=== PATIENT | female | born 1945 | race Caucasian/White ===

== ENCOUNTER 2025-01-08 17:39 | Inpatient (IN) | payer MEDICARE, OTHER, SELFPAY ==
[2025-01-08] VITALS (7 sets, daily range): BP systolic 136–175; BP diastolic 57–79
--- NOTE | 2025-01-08 18:32 | PTCARENOTE ---
Received pt from [facility]. Oriented x3, amb w/ assist. VSS, monitor showing NSR. c/o /10 chest discomfort with coughing and deep breathing. Lungs CTA, abdomen benign, no n/v. Voided in BR with assistance. Hep/Amio drips infusing without difficulty.
Hospitalist notified of arrival, awaiting further orders. Pt/family oriented to room, call arroyo in reach.
--- NOTE | 2025-01-08 19:32 | HPS.HSE ---
Addendum entered and electronically signed by Joanne Noriega MD 01/08/25 20:22:
Correction-patient restarted on amiodarone drip at [facility] due to runs of SVT versus NSVT.
Original Note:
Family Physician
-
Family Physician: Joanne Noriega MD
Chief Complaint
-
chest pain
History of Present Illness
79-year-old female past medical history of hypertension presenting as a transfer from [facility]. She originally went to [facility] 2 days ago for severe pleuritic chest pain radiating up to her neck, shortness of breath and dizziness. She
was discovered to be in atrial fibrillation and given Cardizem en route to the hospital which dropped her blood pressure. She was given IV fluids and shocked without improvement in heart rate. Cardizem drip was stopped and she was started on
amiodarone drip.
She had CT PE which showed basilar consolidations initially thought to be pneumonia and she was treated with antibiotics for some period time which were later discontinued. She also had a mild left pleural effusion. She had troponin elevation
which was thought to be due to nonischemic myocardial injury. She had hypokalemia that was corrected.
She later had echocardiogram which showed severe mitral stenosis. Cardiology thought that severe mitral stenosis was contributing to atrial fibrillation and patient was recommended to be transferred to either [facility] or [facility] for
potential surgical management of mitral stenosis.
She was going to be converted to p.o. amiodarone however she continued to have intermittent episodes of atrial fibrillation so she was placed back on amiodarone drip before transfer to [facility].
Patient had a fall few months ago due to syncope.
No family history of heart disease.
She denies smoking or alcohol use.
At this time patient states that she continues to have chest pain when she takes a deep breath but the pain is substantially improved. She denies any swelling in the legs or weight gain. She has slight cough. Denies fevers or chills.
Medical History
Past Medical History
Past Medical History: Reports Other (hypertension)
Past Surgical History: Reports Orthopedic
Social History
Tobacco: Non-smoker
Alcohol: None
Drug: None
Family History
Family History: Not pertinent
Allergies / Home Medications
Allergies reflects when Allergies were last updated in [employer]
Home Medications with original date entered in [employer]
Allergy/Medication List:
Allergies
Allergy/AdvReac Type Severity Reaction Status Date / Time
sulfamethoxazole (From Allergy Intermediate Nausea / Verified 01/08/25 17:55
Bactrim) Vomiting
trimethoprim (From Bactrim) Allergy Intermediate Nausea / Verified 01/08/25 17:55
Vomiting
Home Medications
hydrochlorothiazide 12.5 mg capsule 12.5 mg PO DAILY 01/08/25
losartan 25 mg tablet 25 mg PO DAILY 01/08/25
Review of Systems
-
History Source: Patient
A 12 point ROS was completed and negative except as noted: Yes
Constitutional: Reports No Symptoms
EENT: Reports No Symptoms
Respiratory: Reports See HPI
Cardiac: Reports See HPI
Abdomen/GI: Reports No Symptoms
: Reports No Symptoms
Musculoskeletal: Reports No Symptoms
Skin: Reports No Symptoms
Neurological: Reports No Symptoms
Endocrine: Reports No Symptoms
Hematologic/Lymphatic: Reports No Symptoms
Psych: Reports No Symptoms
Physical Exam
Vital Signs
Vital Signs
Temp Pulse Resp BP Pulse Ox
98.8 F 71 16 172/67 92
01/08/25 19:22 01/08/25 19:22 01/08/25 19:22 01/08/25 17:42 01/08/25 19:22
Physical Exam
General: Well Developed, Well Nourished and No Apparent Distress
HEENT: NormoCephalic, Moist mucous membranes and Atraumatic
Respiratory: Clear
Cardiac: S1/S2 and Regular Rhythm; No Murmur or Rub
GI: Soft, Non Tender, Non Distended and Normal Bowel Sounds; No Organomegaly
Rectal: Deferred by Provider
Musculoskeletal: No Clubbing, No Cyanosis and No Edema
Skin: No Rash
Neuro: Nonfocal/grossly intact
Data Reviewed
-
Lab Data: Labs Reviewed by me
Old Records: Reviewed
Impression/Plan
-
IMPRESSION:
PLAN:
# Atrial fibrillation with RVR secondary to severe mitral stenosis
-Did not respond to Cardizem drip or cardioversion
- Continue amiodarone drip for now which should be completed by morning and start amiodarone 200 twice daily for 15 days then increase to 200 mg daily
- Continue heparin drip
- Cardiology consulted
# Chest pain secondary to atrial fibrillation
-High-sensitivity troponin 28, then 66, then 394
-Chest pain improved once A-fib was treated
- Echo did not show any wall motion abnormalities
- Outpatient ischemic workup was recommended
# Severe mitral stenosis
- Surgical evaluation was recommended and therefore transfer to [facility]
# HFpEF secondary to valvular disease
-Normal ejection fraction
-Cardiac BNP 1100
- She received 20 IV Lasix once
- No further diuresis was recommended
- Does not appear volume overloaded on examination
# Hypokalemia
- Corrected
Essential hypertension
- Losartan 25 mg, hydrochlorothiazide, 12.5 mg were resumed
DNR/DNI
DVT prophylaxis�heparin drip
Cardiac diet
[2025-01-08 19:57] LABS: Hematocrit 38.9 % (37.0-47.0); Hemoglobin 13.3 g/dL (12.0-16.0); Mean Corp Hgb Conc. 34.2 g/dL (33.0-37.0); Mean Corpuscular Volume 85.9 fL (81.0-99.0); Platelet Count 160 10^3/uL (130-400); Red Cell Dist. Width 13.9 % (11.5-14.5)
[2025-01-08] MEDS: HEPARIN 25000 UNITS/250 ML IV (19:58)
[2025-01-08] MEDS: CORDARONE 518 MG IV (20:01)
[2025-01-08 20:11] LABS: APTT 76.8 Sec (23.4-35.0)
[2025-01-08] MEDS: PACERONE 200 MG PO (21:23)
--- NOTE | 2025-01-08 23:06 | PTCARENOTE ---
Pt. rec'd at change of shift AAOx3, VSS. NSR in the 70's on the monitor. Hospitalist Dr. Noriega up to bedside to admit pt. as she just arrived from [facility]. Heparin and amiodarone gtt's changed over to DH bags and tubing, PTT & CBC collected, rates
adjusted as per orders and protocol. Clarified that pt. is to be on both oral and IV amiodarone. Pt. still complains of left chest pain (under breast with inspiration only) but states it's much improved from previously, Dr. Noriega aware. Pt.
very pleasant, no other complaints, ambulates with assist x 1 to use BR; fall precautions maintained. Pt. currently resting quietly.
[2025-01-09] VITALS (18 sets, daily range): BP systolic 100–171; BP diastolic 55–116
[2025-01-09 00:39] LABS: APTT 82.4 Sec (23.4-35.0)
[2025-01-09 01:01] LABS: Troponin I 0.534 ng/ml
[2025-01-09 01:11] LABS: ALT (SGPT) 43 U/L (0-35); AST (SGOT) 33 U/L (14-36); Albumin 3.4 g/dl (3.5-5.0); Alkaline Phosphatase 63 U/L (38-126); Blood Urea Nitrogen 17 mg/dl (7-17); Calcium 8.8 mg/dl (8.4-10.2); Carbon Dioxide 24 mmol/L (22-30); Chloride 106 mmol/L (98-107); Glucose 108 mg/dl (70-99); Magnesium 1.7 mg/dl (1.6-2.3); Potassium 3.5 mmol/L (3.5-5.1); Sodium 136 mmol/L (135-145); Total Protein 6.0 g/dl (6.3-8.2); eGFR > 60.00
[2025-01-09] MEDS: MAGNESIUM SULFATE 50 IV (01:28)
[2025-01-09] MEDS: KCL 270 MEQ IV (01:38)
--- NOTE | 2025-01-09 02:39 | PTCARENOTE ---
Addendum entered by Soledad Shields RN 01/09/25 03:27:
Amiodarone to continue running at 0.5 mg / min per Alesia Noel (was originally going to be discontinued at 0345). Will continue drip.
Original Note:
Pt. started having frequent runs of VT at approx. 2330, also appeared to flip from NSR to A-fib with baseline rate 120's-140's. When checked pt. stated she felt some palpitations and shortness of breath. BP 167/79, pulse ox 89% on RA. 2L O2
placed with increase in pulse ox to 95%. Hospitalist GIANLUCA Lea notified and came to bedside. EKG completed, labs drawn and sent. Jalen and Mag bolaños subsequently ordered and hung. Pt. continues to have runs fo VT but not as frequently, in A-fib
otherwise 110's. Sleeping soundly. SBP's trended down low 100's-110's, Leonora Noel aware.
--- NOTE | 2025-01-09 03:00 | W.PN.UPDATE ---
Update Note
Progress Note Update
Patient presenting with afib RVR with runs of what appears to be vtach longest being 8 beats. Amiodorone infusion continues and she had po dose of amiodorone 200 mg po at bedtime. STAT electrolytes ordered and will replete K+ and Mag IV. she is
alert and oriented. c/o mild cp with inspiration. Will trend troponin x3. Likely demand ischemia related to elevated HR.
[2025-01-09 05:49] LABS: Hematocrit 34.8 % (37.0-47.0); Hemoglobin 11.9 g/dL (12.0-16.0); Mean Corp Hgb Conc. 34.2 g/dL (33.0-37.0); Mean Corpuscular Volume 85.3 fL (81.0-99.0); Nucleated Red Blood Cells % 0 %; Platelet Count 152 10^3/uL (130-400); Red Cell Dist. Width 13.8 % (11.5-14.5)
[2025-01-09 06:01] LABS: APTT 94.5 Sec (23.4-35.0)
--- NOTE | 2025-01-09 06:01 | PTCARENOTE ---
Pt. converted to NSR rate 60's-70's. EKG completed.
[2025-01-09 06:34] LABS: Troponin I 0.364 ng/ml
--- NOTE | 2025-01-09 08:45 | CON.CAR ---
Addendum entered and electronically signed by Ronnie Donis MD 01/09/25 18:20:
I saw and evaluated the patient, and I provided the substantive portion of the medical decision making.
I reviewed and agree with the note by MANN Salamanca and it accurately reflects our care.
I personally performed the medical decision making of the this encounter and my assessment and plan is below:
There is a history of mitral valve disease. It sounds as if she has calcific mitral valve disease with different assessments of severity. The most recent assessment likely was during rapid A-fib and the assessment might overestimate the severity of
mitral stenosis. Her current rhythm is paroxysmal A-fib with RVR that I suspect organizes to an atrial tachycardia that at times conducts with aberration. I cannot 100% exclude NSVT but in my mind that is less likely. She did have chest discomfort
and dizziness with elevation of troponin and I think we need to evaluate her for potential ACS versus type II IN. For further risk stratification I have recommended proceeding to coronary angiography. At that heart catheterization we can also assess
cardiac valves with a right and left heart assessment but she might still end up needing a transesophageal echocardiogram for further evaluation.
In terms of her rhythm for the short-term I would like to manage her aggressively with amiodarone moving from IV to oral. In the longer term I would like her to meet with my ablation partner to consider catheter ablation of A-fib.
She might have had some heart failure but as best I can tell that has not been a chronic problem and is likely just related to rapid atrial fibrillation with calcific mitral valve disease. Not convinced that she will need chronic treatment for heart
failure. There is a very recent small clinical trial suggesting that even in HFrEF from RVR A-fib it can be safe to stop medications.
Will see if her hypertension needs reintroduction of medications but I suspect it will over time.
Original Note:
Consultation
Consultation Request
Date/Time Consultation Requested: 01/08/25 5691
Date/Time Consultation Performed: 01/09/25 8230
Requesting Provider: Dr. Noriega
Performing Provider: MANN Salamanca for Dr. Donis
Reason for Consultation: rapid Afib
Medical History
-
Chief Complaint: chest pain
History of Present Illness:
Mrs. Stoddard is an 79-year-old female with hypertension, who presented to [facility] on 01/06/2025 with complaints of chest pain. She was noted to be in rapid A-fib and was initially given IV Cardizem bolus and she quickly became hypotensive
and received 2L IV fluid. [facility] records reviewed, she was sedated and shocked without improvement in heart rate in the ER, Cardizem drip was stopped she was initiated on amiodarone drip. Telemetry showed paroxysmal SVT as well as runs
of NSVT and rapid Afib. She had a CT angiogram was negative for PE, unlikely aortic aneurysm, positive troponin likely demand ischemia from rapid A-fib. Was also noted to have acute heart failure, chest x-ray with mild vascular congestion,
elevated BNP. She was given 1 dose of diuretics that caused hypotension. She underwent a TTE 01/06/2025 showed normal LV size, moderately increased thickness, moderate to severe LVH, EF 65%, normal wall motion, mildly dilated LA, severe MAC, severe
MS with moderately reduced anterior and posterior leaflets, mild MR, moderate TR, RSVP 54 mmHg. Patient and family requested transfer to [facility] for cardiac care. She is admitted to the hospital service and we are consulted for rapid
A-fib, and chest pain. She reports seeing Dr. Justice at [facility] on 12/19/2024 and had an echo in his office and was told she has mild valvular heart disease and would continue to monitor with serial echo in 1 year. Currently she denies any chest pain but
is feeling palpitations/fluttering.
Past Medical History
Past Medical History: Other (As above)
Social History
Tobacco: Non-Smoker
Alcohol: None
Personal:
Living: Alone
Family History
Family History: Reviewed & Not Pertinent
Allergies / Home Medications
Allergy/AdvReac Type Severity Reaction Status Date / Time
sulfamethoxazole (From Allergy Intermediate Nausea / Verified 01/08/25 17:55
Bactrim) Vomiting
trimethoprim (From Bactrim) Allergy Intermediate Nausea / Verified 01/08/25 17:55
Vomiting
�Medication �Instructions �Recorded �Confirmed �Type
hydrochlorothiazide 12.5 mg capsule 12.5 mg PO DAILY 01/08/25 01/08/25 History
losartan 25 mg tablet 25 mg PO DAILY 01/08/25 01/08/25 History
Review of Systems
-
History Source: Patient and Family (Daughter)
All other systems: Negative unless noted
Physical Exam
Vital Signs
Temp Pulse Resp BP Pulse Ox
97.8 F 131 20 136/55 96
01/09/25 07:32 01/09/25 08:00 01/09/25 07:32 01/09/25 07:33 01/09/25 07:33
Lab Results
01/09/25 05:35
01/09/25 06:00
Troponin I 0.364 ng/ml H* D 01/09/25 05:35
Physical Exam
General: Well Developed, Well Nourished and No Apparent Distress
HEENT: Normocephalic, Anicteric and Moist Mucous Membranes
Respiratory: Clear and Non Labored Respirations
Cardiac: S1/S2, Irregular Rhythm (Rapid rates) and Peripheral Edema (Trace bilateral LE)
Breast: Deferred by me
GI: Soft, Non Tender, Non Distended and Normal Bowel Sounds
Rectal: Deferred by Provider
Genito-urinary: Clear Urine
Musculoskeletal: No Clubbing and No Cyanosis
Skin: Warm and Dry
Neuro: AO x 3
Hematologic/Lymphatic: No Lymphadenopathy
Psych: Calm
Impression / Plan
-
Atrial fibrillation - acute onset seen in ER 01/06/25, duration unknown.
- Rapid rates treated with IV Cardizem and became hypotensive so discontinued.
- Now on IV amiodarone with rates 90s to 110s.
- [id number] score 4 (age, female, HTN).
- IV heparin drip.
- Plan to switch Amiodarone to PO 400mg TID and monitor tele.
- Echo 01/06/2025 [place]: EF 65%, moderate to severe LVH, mildly dilated LA, severe MAC, severe MS with moderately reduced anterior and posterior leaflets, mild MR, moderate TR, PASP 54 mmHg.
- She also states having an echo at Dr. Justice's office 12/19/2024, will obtain echo report.
Chest pain - non-ischemic myocardial injury secondary to rapid A-fib.
- Troponin 01/09/2025 0.534, then 0.364.
- Denies any chest pain currently.
- Will need ischemic evaluation given new onset A-fib.
- Will keep NPO tomorrow for possible right and left heart cath tomorrow.
Hypertension - hypotensive with IV Cardizem drip, discontinued.
- Monitor BP closely.
- Outpatient meds losartan 25 and HCTZ 12.5, stopped to allow for rate control of A-fib.
Mitral stenosis - severe on echo 01/06/2025 with severe MAC.
- Patient and daughter state she had an echo 12/19/[address] Justice's office and was told she has mild valvular heart disease.
- Will obtain echo from 12/19/2024.
HFpEF - acute decompensated heart failure on presentation to [place] 01/06/2025.
- Given IV Lasix then had hypotension.
- Initial weight on admit to [place] weight was 161 lbs, now 159 lbs.
- Continue to monitor.
Wide complex tachycardia - NSVT vs aberrancy.
- Amiodarone as above and monitor.
Data Reviewed
-
Medical Tests (Nuc Med, Echo etc): Report Reviewed by me (Echo 01/06/2025 at [place]: EF 65%, moderate to severe LVH, normal RV and LV size and function, mildly dilated LA, normal RA, severe MAC, severe MS with moderately reduced anterior and
posterior leaflets, mild MR, moderate TR, PASP 54 mmHg.)
Labs: Labs Reviewed by me
Old Records: Reviewed
[2025-01-09] MEDS: PACERONE 200 MG PO ×2 (09:39→11:56)
--- NOTE | 2025-01-09 13:37 | CM ---
Reviewed chart. Met with Mrs. Stoddard and her daughter to review discharge plans. She states prior to admission she resides with her son in a two sotry home without any steps to enter. She states she has a full flight of steps to get to
bedroom/full bathroom. She states she has a powder room on the first floor. She states prior to admission she was independent with ambulation and adls. She states she does not have any DME in the home. She state she has a prescription plan.
Medical work-up in progress. The discharge plan is to return home with her son when medically stable.
[2025-01-09] MEDS: HEPARIN 25000 UNITS/250 ML IV (15:48)
[2025-01-09] MEDS: PACERONE 400 MG PO ×2 (15:49→21:09)
--- NOTE | 2025-01-09 16:49 | W.PN.HOSP.TC ---
Today's Communication/Plan
-
IV amiodarone
IV heparin drip
Ongoing evaluation for severe MS/ischemia
Assessment / Plan
Assessment / Plan
Impression
Atrial fibrillation with RVR, new diagnosis.
-Concern for wide-complex tachycardia
Heart failure preserved with EF/valvular with mitral stenosis
Severe mitral stenosis.
Nonischemic chest pain
Non-SD troponin elevation.
Presyncope, hypotension after IV Cardizem.
Essential hypertension
Plan:
Atrial fibrillation with RVR, new diagnosis.
Attempt to control with IV Cardizem followed with hypotension and presyncope.
Transition to IV amiodarone pending additional workup.
[id number] score 4 (age, female, HTN). Initiated on IV heparin with eventual plan to transition to oral anticoagulation
Concern for wide-complex tachycardia versus NSVT with evidence
Continue telemetry monitoring
Follow electrolytes
Currently on amiodarone
Chest pain, nonischemic
Non-SD troponin elevation
Echo 01/06/2025 [place]: EF 65%, moderate to severe LVH, mildly dilated LA, severe MAC, severe MS with moderately reduced anterior and posterior leaflets, mild MR, moderate TR, PASP 54 mmHg.
Eventually plan for ischemic evaluation given new onset of A-fib and presumed severe MS.
Heart failure preserved EF, Shubin secondary to valvular dysfunction.
Treated with IV Lasix and [facility] with following hypotension.
Hold further diuretics
Monitor volume status closely
Essential hypertension
Given marginal BP, hold hydrochlorothiazide and losartan
Full code
Anticipated Discharge: 24 - 48 hours
Subjective/Interval History
-
Date of Service: January 09, 2025
Objective Data
-
Labs:
Laboratory Results
01/09/25
05:35
WBC 6.7
Hgb 11.9 L
Hct 34.8 L
Plt Count 152
APTT 94.5 H
Vital Signs:
Vital Signs
Temp Pulse Resp BP Pulse Ox
98.4 F 125 18 125/84 97
01/09/25 15:40 01/09/25 11:56 01/09/25 15:40 01/09/25 11:56 01/09/25 15:40
Physical Exam
-
General: Well Developed and No Apparent Distress
HEENT: Normocephalic, Atraumatic and Moist Mucous Membranes
Respiratory: Clear to Auscultation
Cardiac: Regular Rhythm, S1/S2 and Murmur; Negative Rub or Gallop
GI: Soft, Nontender, Nondistended and Normal Bowel Sounds; Negative Organomegaly
Rectal: Deferred by Provider
Musculoskeletal: No Clubbing, No Cyanosis and No Edema
Skin: Negative Rash
Neuro: Nonfocal/Grossly Intact
--- NOTE | 2025-01-09 19:18 | PTCARENOTE ---
pt currently SR but throughout the day afib w/ aberrancy. pt c/o 'fluttering in her chest' when her HR increases. pt ambulating in room and tolerating well. pt educated on plan of care and pt verbalized understanding. call arroyo within reach.
[2025-01-10] VITALS (15 sets, daily range): BP systolic 123–196; BP diastolic 53–87
--- NOTE | 2025-01-10 00:55 | PTCARENOTE ---
Received pt @ change of shift. AAOx3. VSS-- NSR on monitor @ this time. Denies chest pain. Heparin gtt running @ 1200 units/hr through L [facility]. Discussed plan of care for evening. Pt verbalizes understanding, including NPO @ midnight. Call arroyo within
reach.
[2025-01-10 04:28] LABS: Hematocrit 35.0 % (37.0-47.0); Hemoglobin 12.1 g/dL (12.0-16.0); Mean Corp Hgb Conc. 34.6 g/dL (33.0-37.0); Mean Corpuscular Volume 84.7 fL (81.0-99.0); Platelet Count 171 10^3/uL (130-400); Red Cell Dist. Width 13.6 % (11.5-14.5)
[2025-01-10 04:38] LABS: APTT 79.7 Sec (23.4-35.0)
[2025-01-10] MEDS: PACERONE 400 MG PO ×3 (10:42→22:24)
--- NOTE | 2025-01-10 10:51 | W.PN.HOSP.TC ---
Today's Communication/Plan
-
fish hatchery laborer for ischemic and mitral valve evaluation
Assessment / Plan
Assessment / Plan
Impression
Atrial fibrillation with RVR, new diagnosis.
-Concern for wide-complex tachycardia
Heart failure preserved with EF/valvular with mitral stenosis
Severe mitral stenosis.
Nonischemic chest pain
Non-AL troponin elevation.
Presyncope, hypotension after IV Cardizem.
Essential hypertension
Plan:
Atrial fibrillation with RVR, new diagnosis.
Attempt to control with IV Cardizem followed with hypotension and presyncope.
Transition to IV amiodarone pending additional workup.
Back to NSR
Transitioned to oral Amiodarone
[id number] score 4 (age, female, HTN). Initiated on IV heparin with eventual plan to transition to oral anticoagulation
Concern for wide-complex tachycardia versus NSVT with evidence is likely Afib with aberration
Continue telemetry monitoring
Follow electrolytes
Currently on amiodarone
Chest pain, nonischemic
Non-AL troponin elevation
Echo 01/06/2025 [place]: EF 65%, moderate to severe LVH, mildly dilated LA, severe MAC, severe MS with moderately reduced anterior and posterior leaflets, mild MR, moderate TR, PASP 54 mmHg.
Eventually plan for ischemic evaluation given new onset of A-fib and presumed severe MS.
Heart failure preserved EF in the settings of rapid afib, less likey due to valvular disease.
Treated with IV Lasix and [facility] with following hypotension.
Hold further diuretics
Monitor volume status closely
Essential hypertension
Given marginal BP, hold hydrochlorothiazide and losartan
Full code
Anticipated Discharge: 24 - 48 hours
Subjective/Interval History
-
Date of Service: January 10, 2025
Objective Data
-
Labs:
Laboratory Results
01/10/25
04:00
WBC 5.7
Hgb 12.1
Hct 35.0 L
Plt Count 171
APTT 79.7 H
Vital Signs:
Vital Signs
Temp Pulse Resp BP Pulse Ox
97.2 F 63 15 167/67 87
01/10/25 07:21 01/10/25 10:40 01/10/25 07:21 01/10/25 10:42 01/10/25 07:23
Physical Exam
-
General: Well Developed and No Apparent Distress
HEENT: Normocephalic, Atraumatic and Moist Mucous Membranes
Respiratory: Clear to Auscultation
Cardiac: Regular Rhythm, S1/S2 and Murmur; Negative Rub or Gallop
GI: Soft, Nontender, Nondistended and Normal Bowel Sounds; Negative Organomegaly
Rectal: Deferred by Provider
Musculoskeletal: No Clubbing, No Cyanosis and No Edema
Skin: Negative Rash
Neuro: Nonfocal/Grossly Intact
[2025-01-10] MEDS: HEPARIN 25000 UNITS/250 ML IV (12:01)
--- NOTE | 2025-01-10 12:33 | W.PN.CD ---
Today's Communication / Plan
-
Amio loading
Cath
Impression / Plan
-
Atrial fibrillation and typical atrial flutter
- Rate: Was quite fast
- Rhythm: AFib and typical atrial flutter that are paroxysmal and now in sinus and more sinus as Amio loading
- [id number] score 4 (age, female, HTN).
- Anticoagulation: IV heparin will go to [place] 5 mg bid
- Plan Amio 200 mg TWO tabs (400 mg) tid for 10 days then 200 mg one tab one time a day
-I do not plan buttermaker continuous churn Amio, early ablation consult. If declines ablation will likely move to less toxic med after 3-6 months of Amio
Wide complex tachycardia is from aberration => an APC conducts with identical aberrancy
Troponin elevation
- Given the typical CP and troponin elevation I feel comfortable calling this a Type II RI. If no CP I would have called it non-ischemic myocardial injury. The precipitant is the rapid AFib
- Given the type II RI and her risk factors for CAD (age/HTN) and concern for complex MV calcific disease I have offered her cardiac cath
Hypertension
- Anticipating adding back meds but let's see cath results
Mitral stenosis
- Our echco in SINUS supports mild calcific MS
Pulmonary HTN
- Etiology uncertain, perhaps from HFpEF, RHC with the [facility] today
Suspected HFpEF, precipitated by rapid AFib.
Tricuspid regurgitation, given the lack of right heart failure symptoms anticipate conservative treatment
Subjective:
Feels well
Echo 01/06/2025 [place]: EF 65%, moderate to severe LVH, mildly dilated LA, severe MAC, severe MS with moderately reduced anterior and posterior leaflets, mild MR, moderate TR, PASP 54 mmHg.
Physical Exam
Vital Signs/Labs
Vital Signs
Temp Pulse Resp BP Pulse Ox
97.9 F 63 18 171/58 92
01/10/25 10:58 01/10/25 11:00 01/10/25 10:58 01/10/25 11:00 01/10/25 10:58
01/09/25 01/10/25 01/11/25
06:59 06:59 06:59
Actual Weight 72.5 kg
01/10/25 04:00
01/09/25 06:00
APTT 79.7 Sec (23.4-35.0) H 01/10/25 04:00
Magnesium 1.7 mg/dl (1.6-2.3) 01/09/25 00:08
LAB Results
01/09/25 01/09/25 01/09/25
00:10 05:35 12:00
Troponin I 0.534 H* 0.364 H* D Cancelled
01/09/25
18:00
Troponin I Cancelled
Physical Exam
Constitutional: No acute distress
EENT: Anicteric
Cardiovascular: Rhythm & rate is regular and Pedal edema is absent
Respiratory: Respiratory effort normal and Lungs clear to auscul.
GI: Soft and Distention absent
Neuro/Psych: AO x 3
Data Reviewed
-
Date of Service: January 10, 2025
[2025-01-10 16:49] LABS: ACT-LR - POC 253 Seconds (116-155)
[2025-01-10] MEDS: LIPITOR 80 MG PO (18:54)
[2025-01-10] MEDS: TRANDATE 10 MG IV (18:54)
[2025-01-10] MEDS: KCL 40 MEQ PO (18:54)
--- NOTE | 2025-01-10 19:50 | ITS.CL.PN ---
Shop Estimator - Procedure Note
Procedure
Procedure Note:
CARDIAC CATHETERIZATION REPORT
Date of Procedure: 01/10/2025
Referring: Dr. Felipe Kelly MD, PhD
Indication: NSTEMI and anginal chest pain in setting of Afib with RVR
PROCEDURE(S)
1. right heart catheterization
2. left heart catheterization
3. coronary angiography
4. IVUS LAD
5. PCI with MASON to LAD
ACCESS
1. 6F right radial artery (closure: radial band)
2. 5F right antecubital vein (closure: manual hemostasis)
CATHETERS
1. 5F [place]
2. 6F JR4
3. 6F JL3.5
4. EBU3.5 guide catheter
MODERATE SEDATION: 60 minutes of moderate sedation was utilized. An independent medical clerical assistant was present to assist with and help manage the patient's level of consciousness and physiologic status.
HEMODYNAMIC DATA
LV 202/11 (EDP 20) mmHg
AO 190/80 (mean 122) mmHg
RA 11 mmHg
RV 51/5 (EDP 15) mmHg
PA 52/19 (mean 34) mmHg
PCWP 22 mmHg
SaO2 90.7%
SvO2 66.8%
Hb 11.8 g/dL
CO/CI 5.6/3.26 L/min/m2
SVR 1575 dsc*-5
PVR 2.1 Wood units
CORONARY ANGIOGRAPHY
Dominance: Right
LM: Large, normal
LAD: Large vessel giving rise to a very large branching D1. The LAD after the takeoff of D2 has a focal up to 80% stenosis. Of note there is a moderate caliber S1 with significant myocardial bridging in its distal aspect.
LCx: Small vessel supplying a moderate caliber OM1/ramus. There is no significant continuation of the LCx in the AV groove. This is likely due to the presence of a hyperdominant RCA supplying the lateral wall territory beyond the OM1/ramus. Given
identification of a likely culprit vessel in the LAD and the presumably small territory that would be supplied by any undetected anomalous circumflex branch, further attempts at identifying a possible anomalous branch were not pursued. If clinically
relevant in the future, can consider non-selective angiography or CTA to definitively define anatomy.
RCA: Large hyperdominant vessel giving rise to a small RPDA, moderate caliber RPL1, small RPL2, and small RPL3 extending high in the posterolateral wall. There is a 40% calcified ostial stenosis with no dampening on engagement with a 6 [place]
diagnostic catheter and otherwise trivial luminal irregularities only.
PCI with MASON to LAD
Heparin was given to achieve ACT greater than 300. The left main was engaged with a EBU 3.5 guide catheter and a Runthrough wire placed in the distal LAD. Initial lesion preparation was performed with a 2.0 mm semicompliant balloon followed by IVUS
demonstrating a 2.25 mm distal reference vessel diameter and a 2.5 mm proximal reference vessel diameter. Stenting was performed with a 2.25 x 23 mm Xience Skypoint MASON deployed at 12 felisa and postdilated distally with a 2.25 mm NC balloon to 16 felisa
and proximally with a 2.5 mm NC balloon at 16 felisa. Final IVUS demonstrated full stent expansion and apposition with no evidence of dissection. Final angiography demonstrated an excellent result with no complication. The wire and guide were removed
and a TR band placed. The patient was loaded with 600 mg of Plavix
RADIATION: dose 634 mGy; DAP 37 Gy*cm2; fluoroscopy time 12.0 min
CONCLUSIONS
1. Single-vessel coronary artery disease as described in a right dominant system with 80% stenosis of the mid LAD.
2. Right heart catheterization with mildly elevated biventricular filling pressures, moderate mixed pre and postcapillary pulmonary hypertension, and normal cardiac output
3. No aortic stenosis on hemodynamic pullback
4. Successful IVUS guided PCI to the mid LAD with a 2.25 x 23 mm Xience Skypoint MASON postdilated distally with a 2.25 mm NC balloon and proximally with a 2.5 mm NC balloon
RECOMMENDATIONS
1. Triple therapy with Plavix, Eliquis, and aspirin for 1 week followed by Plavix and Eliquis for 6 months.
2. Aggressive secondary prevention of coronary artery disease
Copy to: Dr. Giovanni Justice DO (centrifugal casting machine operator); Dr. Joanne Noriega MD (PCP)
Signed: Noman Jasmine MD, PhD
[2025-01-10] MEDS: ELIQUIS 5 MG PO (22:24)
[2025-01-11] VITALS (7 sets, daily range): BP systolic 126–187; BP diastolic 54–126; BMI 28.2
[2025-01-11] MEDS: MIRALAX 17 GRAMS PO (01:07)
[2025-01-11 04:11] LABS: Blood Urea Nitrogen 15 mg/dl (7-17); Calcium 9.1 mg/dl (8.4-10.2); Carbon Dioxide 24 mmol/L (22-30); Chloride 110 mmol/L (98-107); Estimated Creatinine Clearance 70 ml/min; Glucose 89 mg/dl (70-99); Potassium 4.1 mmol/L (3.5-5.1); Sodium 138 mmol/L (135-145); eGFR > 60.00
--- NOTE | 2025-01-11 04:22 | PTCARENOTE ---
Rec'd pt at change of shift. Pt AAO*3, VSS, and SR on the TELE monitor. Pt reports discomfort from previous IV site on R forearm. Warm / cold compress alternated throughout night. Pt reported relief with compression therapy. R radial band
weaned off as ordered. R radial and R brachial site CDI. Eliquis administration delayed due to weaning of radial band. Pt reported constipation and PRN mirolax given as ordered. Plan of care updated with pt and agreeable to R limb restriction at
this time.
--- NOTE | 2025-01-11 07:54 | PTCARENOTE ---
Assumed care of pt from nsg shift; Pt AAOx3 w/no c/o CP or SOB this AM. Pt's VSS w/HR in the 60's & BP elevated at 161/65 this AM. Pt due for AM BP meds. Pt is SR on telemetry monitoring. Pt w/ R radial site w/dressing C/D/I & no signs or symptoms
of bleeding or hematoma. Pt's R FA w/old IV infiltrate/phlebitic area; warm & cold compresses being alternated for comfort. Pt OOB to for breakfast & anticipating poss D/C today. No addtl needs at this time. Plan of care ongoing.
--- NOTE | 2025-01-11 08:25 | W.PN.CD ---
Addendum entered and electronically signed by Ronnie Donis MD 01/11/25 12:00:
I saw and evaluated the patient early this morning prior to discharge, and I provided the substantive portion of the medical decision making.
I reviewed and agree with the note by Wood Bhardwaj and it accurately reflects our care.
I personally performed the medical decision making of the this encounter and my assessment and plan is below:
Tele shows almost all NSR, a few PACs, and for what I think is her first REAL nonsustained VT at 0550 hours today for 14 beats/7.6 sec.
PAF, RVR => suppressed with AMIO, plan to proceed to ablation
Aberration
NSVT (one time)
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
HFpEF, will optimize meds as outpatient
Lipids => aim for LDL less than 55
HTN
Mild calcific MS
Plan amio load then down to 200 a day. ASA/Plavix/Eliquis for only 1 week and then stop ASA. At 6 month keke stop Plavix and I might add back ASA (bleeding risk at 79 yo may make me opt for just Eliquis at 6 mo keke), at 1 yr definitely just Eliquis
no antiplatelet. Monitor for progression of valve disease, CAD, arrhythmias. Home today. She wishes to follow with me but she may chose her local film and video editor in [place] for conveinance.
Original Note:
Today's Communication / Plan
-
Triple therapy with Plavix, Eliquis, and aspirin for 1 week followed by Plavix and Eliquis for 6 months (then discussion with Dr. Donis to determine if patient would benefit from AP longer)
Amiodarone 200 mg TWO tabs (400 mg) tid for 10 days then 200 mg one tab one time a day
Stover SGLT2I with CM
Add back antihypertensive agents
Impression / Plan
-
Atrial fibrillation and typical atrial flutter
- Rate: Was quite fast
- Rhythm: AFib and typical atrial flutter that are paroxysmal and now in sinus as Amio loading
- [id number] score 4 (age, female, HTN).
- Anticoagulation: Eliquis 5 mg PO BID
- Plan Amio 200 mg TWO tabs (400 mg) tid for 10 days then 200 mg one tab one time a day
-Dr. Donis (who patient plans to follow with) does not plan superintendent terminal Amio, but early ablation consult. If declines ablation will likely move to less toxic med after 3-6 months of Amio
Wide complex tachycardia is from aberration => an APC conducts with identical aberrancy
CAD:
-cardiac cath 01/10/25: Single-vessel coronary artery disease as described in a right dominant system with 80% stenosis of the mid LAD. Right heart catheterization with mildly elevated biventricular filling pressures, moderate mixed pre and
postcapillary pulmonary hypertension, and normal cardiac output. Successful IVUS guided PCI to the mid LAD with a 2.25 x 23 mm Xience Skypoint MASON postdilated distally with a 2.25 mm NC balloon and proximally with a 2.5 mm NC balloon.
-continue high-intensity statin, LDL goal <55
-Plan triple therapy with Plavix, Eliquis, and aspirin for 1 week followed by Plavix and Eliquis for 6 months (then discussion with Dr. Donis whether to continue Plavix longer). Aggressive secondary prevention of coronary artery disease.
Troponin elevation
- Given the typical CP and troponin elevation, this a Type II VA. The precipitant is the rapid AFib
Hypertension
-patient on HCTZ and ARB as OP
-BP's have generally been elevated- will add meds to assist with this
Mitral stenosis
- Our echo in [place] supports mild calcific MS
Pulmonary HTN
- Etiology uncertain, perhaps from HFpEF, RHC values as noted
HFpEF, acute- precipitated by afib:
-now stable, does not appear volume overloaded
-rhythm plan as above
-RHC as noted above
-will have CM stover SGLT2I
Tricuspid regurgitation, given the lack of right heart failure symptoms anticipate conservative treatment
Subjective:
No CP or palps. She feels tired
Cath sites stable no hematoma
Echo 01/06/2025 [place]: EF 65%, moderate to severe LVH, mildly dilated LA, severe MAC, severe MS with moderately reduced anterior and posterior leaflets, mild MR, moderate TR, PASP 54 mmHg.
Physical Exam
Vital Signs/Labs
Vital Signs
Temp Pulse Resp BP Pulse Ox
97.9 F 64 16 161/65 92
01/11/25 07:26 01/11/25 07:30 01/11/25 07:26 01/11/25 07:30 01/11/25 07:26
01/10/25 01/11/25 01/12/25
06:59 06:59 06:59
Actual Weight 72.3 kg
01/10/25 04:00
01/11/25 03:26
APTT 79.7 Sec (23.4-35.0) H 01/10/25 04:00
Magnesium 1.7 mg/dl (1.6-2.3) 01/09/25 00:08
LAB Results
01/09/25 01/09/25 01/09/25
00:10 05:35 12:00
Troponin I 0.534 H* 0.364 H* D Cancelled
01/09/25
18:00
Troponin I Cancelled
Physical Exam
Constitutional: No acute distress
EENT: Anicteric
Cardiovascular: Rhythm & rate is regular, Pedal edema is absent and Systolic murmur present (II/)
Respiratory: Respiratory effort normal and Lungs clear to auscul.
Neuro/Psych: AO x 3
Other: Cath Site (stable no hematoma)
Data Reviewed
-
Date of Service: January 11, 2025
EKG: Other (SR on telemetry)
Medical Tests (PFT, Pathology etc): Report Reviewed by me (cath as noted)
Labs: Labs Reviewed by me
[2025-01-11] MEDS: COZAAR 25 MG PO (09:52)
[2025-01-11] MEDS: ORETIC 12.5 MG PO (09:52)
[2025-01-11] MEDS: PACERONE 400 MG PO (09:52)
[2025-01-11] MEDS: LOW STRENGTH ASPIRIN 81 MG PO (09:53)
[2025-01-11] MEDS: PLAVIX 75 MG PO (09:53)
[2025-01-11] MEDS: ELIQUIS 5 MG PO (09:53)
--- NOTE | 2025-01-11 10:26 | W.DS.TRANS ---
DC Summary - Pad Tufter
-
Discharge Instructions:
Discharge Diagnosis/Procedures
Paroxysmal atrial fibrillation
Coronary artery disease
Angioplasty and stent to Left Anterior
Descending artery
Hypertension
Blood Work bmp in one week
Other Services Cardiac Rehab
Instructions:
Stand-Alone Forms: DC Instructions- Cath/EP Lab
Changes to Home Medications: Yes
Discharge Medications:
DC Medications w/original date entered in [facility]
hydrochlorothiazide 12.5 mg capsule 12.5 mg PO DAILY 01/08/25
losartan 25 mg tablet 25 mg PO DAILY 01/08/25
amiodarone 200 mg tablet (Pacerone) 400 mg (2 x 200 mg) PO TID #120 tabs 01/11/25
apixaban 5 mg tablet (Eliquis) 5 mg PO BID #60 tabs 01/11/25
aspirin 81 mg chewable tablet 81 mg PO DAILY #10 tabs 01/11/25
atorvastatin 80 mg tablet 80 mg PO QPM #30 tabs 01/11/25
clopidogrel 75 mg tablet 75 mg PO DAILY #30 tabs 01/11/25
Home Medication Changes
Triple therapy with Plavix, Eliquis, and aspirin for 1 week followed by Plavix and Eliquis for 6 months (then discussion with Dr. Donis to determine if patient would benefit from AP longer)
Amiodarone 200 mg TWO tabs (400 mg) tid for 10 days then 200 mg one tab one time a day
Pending Results: No
--- NOTE | 2025-01-11 10:38 | W.DS.TRANS ---
DC Summary - Fur Designer
-
Discharge Instructions:
Discharge Diagnosis/Procedures
Paroxysmal atrial fibrillation
Coronary artery disease
Angioplasty and stent to Left Anterior
Descending artery
Hypertension
Blood Work bmp in one week
Other Services Cardiac Rehab
Instructions:
Stand-Alone Forms: DC Instructions- Cath/EP Lab
Changes to Home Medications: Yes
Discharge Medications:
DC Medications w/original date entered in [facility]
hydrochlorothiazide 12.5 mg capsule 12.5 mg PO DAILY 01/08/25
losartan 25 mg tablet 25 mg PO DAILY 01/08/25
amiodarone 200 mg tablet (Pacerone) 400 mg (2 x 200 mg) PO TID #120 tabs 01/11/25
apixaban 5 mg tablet (Eliquis) 5 mg PO BID #60 tabs 01/11/25
aspirin 81 mg chewable tablet 81 mg PO DAILY #10 tabs 01/11/25
atorvastatin 80 mg tablet 80 mg PO QPM #30 tabs 01/11/25
clopidogrel 75 mg tablet 75 mg PO DAILY #30 tabs 01/11/25
Home Medication Changes
All of above
Pending Results: No
--- NOTE | 2025-01-11 11:51 | CM ---
Reviewed chart. Telephone call to [facility], ([phone]) to review co-pay for Eliquis 5 mg po bid, Jardiance 10 mg po daily and Farxiga 10 mg po daily. She has not met her $590.00 deductible so her firt script for Eliquis would be $497.26
the first month, Once the deductible has been met her go-pay would be $140.00 a month. Jardiance 10 mg po daily co-pay would be $502.00 until her deductible has been met after her deductible has been met her co-pay would be $145.00 a month. Farxiga
10 mg po daily would be $495.40 until deductible has been met after deductible has been met her co-pay would be $138.00. After she pays out $2000.00 out of pocket her co-pay would be zero. Gave her the one month free Eliquis coupon to use. Also
gave her the PACE Application and the Patient Assistance Program Application to see if she will qualify for these programs. Reviewed with her and her family the above. She states her niece will help her with the applications. She was willing to
send them in to see if she qualifies.
Reviewed chart. Met with Mrs. Stoddard and her daughter to review discharge plans. She states prior to admission she resides with her son in a two story home without any steps to enter. She states she has a full flight of steps to get to
bedroom/full bathroom. She states she has a powder room on the first floor. She states prior to admission she was independent with ambulation and adls. She states she does not have any DME in the home. She state she has a prescription plan.
Medical work-up in progress. The discharge plan is to return home with her son when medically stable.
[2025-01-11] MEDS: TRANDATE 10 MG IV (12:28)
[2025-01-11] MEDS: FLUSH (NSS) 2 FLUSH IV (12:28)
--- NOTE | 2025-01-11 16:03 | PTCARENOTE ---
Pt's IV line & machine loader removed. D/C instructions discussed w/pt & pt's daughter. Pt taken out via wheelchair by staff w/daughter driving her home.
== END 2025-01-11 16:04 | disposition home health service (06) | DRG 321 ==
LOC: IVU 17:39
PROVIDERS: Nurse Practitioner; Registered Nurse; Student in an Organized Health Care Education/Training Program; ADMITTING PHYSICIAN Hospitalist; ATTENDING PHYSICIAN Internal Medicine; OTHER PHYSICIAN Internal Medicine Cardiovascular Disease
PROC: B2111ZZ Fluoroscopy of Multiple Coronary Arteries using Low Osmolar Contrast (ICD-10-PCS; 2025-01-10)
PROC: B240ZZ3 Ultrasonography of Single Coronary Artery, Intravascular (ICD-10-PCS; 2025-01-10)
PROC: 4A023N8 Measurement of Cardiac Sampling and Pressure, Bilateral, Percutaneous Approach (ICD-10-PCS; 2025-01-10)
PROC: 027034Z Dilation of Coronary Artery, One Artery with Drug-eluting Intraluminal Device, Percutaneous Approach (ICD-10-PCS; 2025-01-10)
DX: I48.91 Unspecified atrial fibrillation (principal); I21.A1 Myocardial infarction type 2; I50.32 Chronic diastolic (congestive) heart failure; I25.10 Atherosclerotic heart disease of native coronary artery without angina pectoris; I11.0 Hypertensive heart disease with heart failure; I05.0 Rheumatic mitral stenosis; I27.20 Pulmonary hypertension, unspecified; Z66 Do not resuscitate; E87.6 Hypokalemia; Z88.1 Allergy status to other antibiotic agents; Z88.2 Allergy status to sulfonamides; I05.8 Other rheumatic mitral valve diseases; I07.1 Rheumatic tricuspid insufficiency; I47.10 Supraventricular tachycardia, unspecified; I47.20 Ventricular tachycardia, unspecified; I48.3 Typical atrial flutter; Z79.899 Other long term (current) drug therapy
CPT/HCPCS: 80048; 80053; 83735; 84484; 85025; 85027; 85347; 85730; 87070; 92978; 93005; 93306; 93460; 99152; 99153; C1725; C1753; C1769; C1874; C1894; C9600; Q9967

== ENCOUNTER 2025-01-23 17:34 | Emergency (ER) | payer MEDICARE, OTHER, SELFPAY ==
[2025-01-23 17:40] VITALS: BP 149/70
[2025-01-23 18:05] LABS: Hematocrit 38.0 % (37.0-47.0); Hemoglobin 13.1 g/dL (12.0-16.0); Mean Corp Hgb Conc. 34.5 g/dL (33.0-37.0); Mean Corpuscular Volume 85.2 fL (81.0-99.0); Nucleated Red Blood Cells % 0 %; Platelet Count 227 10^3/uL (130-400); Red Cell Dist. Width 13.1 % (11.5-14.5)
[2025-01-23 18:16] LABS: ALT (SGPT) 28 U/L (0-35); AST (SGOT) 24 U/L (14-36); Albumin 4.5 g/dl (3.5-5.0); Alkaline Phosphatase 60 U/L (38-126); Blood Urea Nitrogen 24 mg/dl (7-17); Calcium 9.4 mg/dl (8.4-10.2); Carbon Dioxide 30 mmol/L (22-30); Chloride 97 mmol/L (98-107); Glucose 120 mg/dl (70-99); Potassium 4.0 mmol/L (3.5-5.1); Sodium 135 mmol/L (135-145); Total Protein 7.2 g/dl (6.3-8.2); eGFR 45.48
[2025-01-23 18:34] LABS: Troponin I < 0.012 ng/ml
[2025-01-23 19:36] VITALS: BP 160/56
--- NOTE | 2025-01-23 19:46 | ED.GENMED ---
History of Present Illness
General
Chief Complaint: Chest Problem
Source: patient
Time Seen by Provider: 01/23/25 19:32
History of Present Illness
History of Present Illness:
79-year-old female presents to the emergency room complaining of chest pain. Patient began having chest pain last evening. She describes it as both a pressure and sharp pain that exists in her chest and radiates to her neck. Pain is somewhat
worse with deep breath. She has been having chest discomfort which was more severe that prompted a cardiac catheterization at the end of December. She had a single-vessel stented. She was discharged on aspirin Plavix and Eliquis which she took for
1 week. She then went down to just Eliquis and Plavix. Patient also was taking amiodarone. The dose of this was decreased over. 10 days. Now she is down to 20 mg once a day. She denies any fever, chills. She has no shortness of breath at this
time. She is able to ambulate about the house and go up a flight of steps without limitation. Patient states the discomfort she experience today was much less significant than what prompted her to have a catheterization.
Phy Exam
Physical Exam
Physical Exam:
General: Awake, Alert, Oriented X3. No acute distress. Appears stated age
Vitals: unremarkable
Head: Atraumatic
Eyes: Pupils equal, EOMI
Throat: Airway intact, no exudates
Neck: Trachea midline
Lungs: Clear and equal b/l
Heart: Regular rate, no murmurs
Abd: Soft, Nontender, No pulsatile mass
Neuro: nonfocal
Skin: Warm, dry, no rash
Extremities: pulses equal b/l, no edema
Course
Orders/Labs/Results
Orders:
Orders
01/23/25 17:35
Electrocardiogram (*1) Urgent
Reason for Study: Chest Pain
EKG- Treatment ONCE
01/23/25 17:50
Complete Blood Count/With Diff Urgent
Comprehensive Metabolic Panel Urgent
Troponin I Urgent
01/23/25 19:45
CT Chest Angio W/wo Iv Contras Urgent
Comment:
Reason For Exam: chest pain eval for dissection
01/23/25 19:51
Acetaminophen [Tylenol] 1,000 mg PO NOW STA
01/23/25 20:08
Troponin I Urgent
Abnormal Lab Results
01/23/25
17:50
WBC 12.4 H 10^3/uL
(4.8-10.8)
Absolute Neuts (auto) 10.7 H 10^3/uL
(1.4-6.5)
Absolute Lymphs (auto) 0.7 L 10^3/uL
(1.2-3.4)
Absolute Monos (auto) 0.8 H 10^3/uL
(0.1-0.6)
Neutrophils % 86.8 H %
(42.2-75.2)
Lymphocytes % 5.7 L %
(20.5-51.1)
Chloride 97 L mmol/L
(98-107)
BUN 24 H mg/dl
(7-17)
Creatinine 1.2 H mg/dL
(0.6-1.0)
Glucose 120 H mg/dl
(70-99)
01/23/25 17:50
01/23/25 17:50
Vital Signs
Initial and Last Documented VS:
Initial Vital Signs
Temp Pulse Resp BP Pulse Ox
98.0 F 76 20 149/70 97
01/23/25 17:40 01/23/25 17:40 01/23/25 17:40 01/23/25 17:40 01/23/25 17:40
Last Documented Vital Signs
Temp Pulse Resp BP Pulse Ox
98.0 F 72 16 139/55 95
01/23/25 17:40 01/23/25 22:01 01/23/25 22:01 01/23/25 22:01 01/23/25 22:01
MDM/Problems Addressed
Differential Diagnosis Includes:
angina, pericarditis, nstemi, dissection, chest wall pain
MDM/Problems Addressed:
Patient presents with chest discomfort. EKG is unchanged from previous. Troponins negative x 2. CT angiogram of the chest shows no dissection or aneurysm. No large vessel pulmonary embolism. Patient feels somewhat better knowing that workup is
negative. Communicated with Dr. Kelly via [place] text. He agrees with chest pain hotline follow-up. As it turns out the patient has an appointment with Dr. Donis in 2 days which is ideal for follow-up.
*Radiology
Radiology exam reviewed: radiology read reviewed
*Pulse Oximetry
SaO2: 97
Oxygen Mode of Delivery: Room air
Patient hypoxic: no
*EKG
Interpreted by ED Provider?: Yes
Comparison EKG: no changes
Heart Rate: 75
Rate: normal
Rhythm: sinus
[place]: normal axis
Interval: normal interval
QRS Pattern: normal QRS
Ischemia: non-specific ST changes
*Cable Assembler Interpretation
Rate: normal
Interpretation: normal
Rhythm: sinus
*Critical Care Note
Total Time (30-74mins, 75-104mins- exclusive of procedures): Not Applicable
Data Reviewed
Review of Other/Old Records Reveals: Other (Cardiac cath report from January 10.)
Patient Management
Social determinants of health affecting care: Strong social support
ED Attending Note
-
Portions of this chart may have been created with voice recognition software.� Occasional wrong word or��sound alike� substitutions may have occurred due to the inherent limitations of voice recognition software.
Discharge Plan
Departure
Patient Disposition: Home (Routine Discharge)
Date of Disposition: 01/23/25
Time of Disposition: 21:21
Patient with high blood pressure during this ER visit?: Yes
Condition: Good
Discharge Problem:
Chest pain
Instructions: Chest Pain CBC Follow Up, BLOOD PRESSURE
Prescriptions:
No Action
losartan 25 mg Tablet
25 mg PO DAILY
hydrochlorothiazide 12.5 mg Capsule
12.5 mg PO DAILY
atorvastatin 80 mg Tablet
80 mg PO QPM Qty: 30 0RF
amiodarone [Pacerone] 200 mg Tablet
400 mg PO TID Qty: 120 0RF
Rx Instructions:
Amiodarone 200 mg TWO tabs (400 mg) tid for 10 days then 200 mg one tab one time a day
aspirin 81 mg Tablet,Chewable
81 mg PO DAILY Qty: 10 0RF
Eliquis 5 mg Tablet
5 mg PO BID Qty: 60 0RF
clopidogrel 75 mg Tablet
75 mg PO DAILY Qty: 30 0RF
Referrals:
Sadia Carlos, DO [Family Provider]
Interventions
Interventions:
*Risk Screen - Suicide Last Done: 01/23/25 19:54
*General Assessment Last Done: 01/23/25 17:40
*Neglect/Abuse Screening Last Done: 01/23/25 19:54
*ED- Fall Risk Assessment Last Done: 01/23/25 19:54
*ED COVID-19 Vaccine History Last Done: 01/23/25 19:54
*Nursing Disposition Last Done: 01/23/25 22:01
ED- Cardiac Assessment Last Done: 01/23/25 19:54
ED- Pulmonary Assessment Last Done: 01/23/25 19:54
Discharge Date and Time
Discharge Date/Time: 01/23/25 22:03
Print Language: BURMESE
[2025-01-23 20:00] VITALS: BP 154/70; BMI 28.2
[2025-01-23] MEDS: TYLENOL 1000 MG PO (20:00)
[2025-01-23 20:39] LABS: Troponin I < 0.012 ng/ml
[2025-01-23 22:01] VITALS: BP 139/55
== END 2025-01-23 22:03 | disposition home or self-care (01) ==
LOC: EMR 17:34
PROVIDERS: Emergency Medicine; EMERGENCY PHYSICIAN Emergency Medicine; FAMILY PHYSICIAN Family Medicine
DX: R07.89 Other chest pain (principal); R03.0 Elevated blood-pressure reading, without diagnosis of hypertension; Z98.890 Other specified postprocedural states; Z88.1 Allergy status to other antibiotic agents
CPT/HCPCS: 99284; 71275; 80053; 84484; 85025; 93005; Q9967

== ENCOUNTER 2025-01-25 13:48 | Inpatient (IN) | payer MEDICARE, OTHER, SELFPAY ==
[2025-01-25] VITALS (17 sets, daily range): BP systolic 97–125; BP diastolic 47–66; BMI 27.7
--- NOTE | 2025-01-25 08:57 | ED.GENMED ---
History of Present Illness
<Billy Cooper PA-C - Last Filed: 01/25/25 12:55>
General
Chief Complaint: Breathing Problem
Source: patient
Exam Limitations: none
Time Seen by Provider: 01/25/25 08:51
History of Present Illness
History of Present Illness:
79-year-old female with coronary artery disease with recent stenting placed 2 weeks ago presents with chest pain has been persistent for several days. The pain worsened today radiates up into her neck. At the time of the stent she went into atrial
fibrillation was started on Eliquis Plavix and aspirin. The aspirin was continued for a week. She was also started on amiodarone which was decreased she is now currently on 20 mg daily. The pain increased today and she called EMS.
Phy Exam
<GONZALO Tran Last Filed: 01/25/25 12:55>
Physical Exam
Physical Exam:
General: Well-developed female no acute respiratory distress
HEENT: Normocephalic atraumatic
Heart tachycardic and irregular
Lungs: Clear no wheeze
Abdomen is soft nontender extremities: No cyanosis or edema
Scores
<Billy Cooper PA-C - Last Filed: 01/25/25 12:55>
Heart Failure Risk
Heart Failure Risk Score: Not Applicable
Course
<Blily Cooper PA-C - Last Filed: 01/25/25 12:55>
Orders/Labs/Results
Orders:
Orders
01/25/25 08:45
Electrocardiogram (*1) Urgent
Reason for Study: Chest Pain
EKG- Treatment ONCE
01/25/25 08:47
Diltiazem 125 mg/125 ml Nss [Cardizem] 125 mg in 125 ml .ROUTE .STK-MED
Diltiazem HCl [Cardizem] 25 mg .ROUTE .STK-MED ONE
01/25/25 08:51
Diltiazem HCl [Cardizem] 15 mg IV NOW STA
01/25/25 09:05
C-Reactive Protein Urgent
Comment: ADD ON
Complete Blood Count/With Diff Urgent
Comprehensive Metabolic Panel Urgent
Troponin I Urgent
01/25/25 09:08
Acetaminophen [Tylenol] 650 mg .ROUTE .STK-MED ONE
01/25/25 09:10
Acetaminophen [Tylenol] 650 mg PO NOW STA
01/25/25 09:12
Electrocardiogram (*1) Urgent
Reason for Study: Atrial Fibrillation
EKG- Treatment ONCE
01/25/25 10:44
Urinalysis Reflex To Culture Urgent
Date Specimen was Collected: 01/25/25
Time Specimen was Collected: 10:42
Urine Microscopic Reflex Cult Urgent
Urine Culture Urgent
CARLOS Source: U
Specimen Description:
Date Specimen was Collected: 01/25/25
Time Specimen was Collected: 10:42
01/25/25 11:21
Add On- LAB Routine
Tests Added?: CRP
01/25/25 11:22
Echo Follow-up Study Routine
Reason for Study: chest pain, recent stent, pericardial effusion on CT
Abnormal Lab Results
01/25/25 01/25/25
09:05 10:44
WBC 12.5 H 10^3/uL
(4.8-10.8)
Abs Immat Gran (auto) 0.1 H 10^3/uL
(0-0.05)
Absolute Neuts (auto) 10.4 H 10^3/uL
(1.4-6.5)
Absolute Lymphs (auto) 1.0 L 10^3/uL
(1.2-3.4)
Absolute Monos (auto) 1.0 H 10^3/uL
(0.1-0.6)
Neutrophils % 83.2 H %
(42.2-75.2)
Lymphocytes % 8.1 L %
(20.5-51.1)
Sodium 134 L mmol/L
(135-145)
Carbon Dioxide 31 H mmol/L
(22-30)
BUN 18 H mg/dl
(7-17)
Glucose 121 H mg/dl
(70-99)
C-Reactive Protein 152.10 H mg/L
(0.0-10.00)
Urine Ketones 1+ A
(Negative)
Ur Occult Blood Reflex 4+ A
(Negative)
Leukocyte Esterase Rfl 2+ A
(Negative)
Urine RBC 3-6 A /HPF
(0-2)
Urine Bacteria (Reflex) Few A
(Negative)
Urine Albumin (Reflex) 3+ A
(Neg - Trace)
01/25/25 09:05
01/25/25 09:05
Vital Signs
Initial and Last Documented VS:
Initial Vital Signs
Pulse Resp Pulse Ox
102 22 94
01/25/25 08:56 01/25/25 08:56 01/25/25 08:56
Last Documented Vital Signs
Pulse Resp BP Pulse Ox
70 19 102/50 94
01/25/25 11:30 01/25/25 11:30 01/25/25 11:30 01/25/25 10:15
<Emmanuel Ellis MD - Last Filed: 01/25/25 09:54>
Orders/Labs/Results
Orders:
Orders
01/25/25 08:45
Electrocardiogram (*1) Urgent
Reason for Study: Chest Pain
EKG- Treatment ONCE
01/25/25 08:47
Diltiazem 125 mg/125 ml Nss [Cardizem] 125 mg in 125 ml .ROUTE .STK-MED
Diltiazem HCl [Cardizem] 25 mg .ROUTE .STK-MED ONE
01/25/25 08:51
Diltiazem HCl [Cardizem] 15 mg IV NOW STA
01/25/25 09:05
C-Reactive Protein Urgent
Comment: ADD ON
Complete Blood Count/With Diff Urgent
Comprehensive Metabolic Panel Urgent
Troponin I Urgent
01/25/25 09:08
Acetaminophen [Tylenol] 650 mg .ROUTE .STK-MED ONE
01/25/25 09:10
Acetaminophen [Tylenol] 650 mg PO NOW STA
01/25/25 09:12
Electrocardiogram (*1) Urgent
Reason for Study: Atrial Fibrillation
EKG- Treatment ONCE
01/25/25 10:44
Urinalysis Reflex To Culture Urgent
Date Specimen was Collected: 01/25/25
Time Specimen was Collected: 10:42
Urine Microscopic Reflex Cult Urgent
Urine Culture Urgent
CARLOS Source: U
Specimen Description:
Date Specimen was Collected: 01/25/25
Time Specimen was Collected: 10:42
01/25/25 11:21
Add On- LAB Routine
Tests Added?: CRP
01/25/25 11:22
Echo Follow-up Study Routine
Reason for Study: chest pain, recent stent, pericardial effusion on CT
Abnormal Lab Results
01/25/25 01/25/25
09:05 10:44
WBC 12.5 H 10^3/uL
(4.8-10.8)
Abs Immat Gran (auto) 0.1 H 10^3/uL
(0-0.05)
Absolute Neuts (auto) 10.4 H 10^3/uL
(1.4-6.5)
Absolute Lymphs (auto) 1.0 L 10^3/uL
(1.2-3.4)
Absolute Monos (auto) 1.0 H 10^3/uL
(0.1-0.6)
Neutrophils % 83.2 H %
(42.2-75.2)
Lymphocytes % 8.1 L %
(20.5-51.1)
Sodium 134 L mmol/L
(135-145)
Carbon Dioxide 31 H mmol/L
(22-30)
BUN 18 H mg/dl
(7-17)
Glucose 121 H mg/dl
(70-99)
C-Reactive Protein 152.10 H mg/L
(0.0-10.00)
Urine Ketones 1+ A
(Negative)
Ur Occult Blood Reflex 4+ A
(Negative)
Leukocyte Esterase Rfl 2+ A
(Negative)
Urine RBC 3-6 A /HPF
(0-2)
Urine Bacteria (Reflex) Few A
(Negative)
Urine Albumin (Reflex) 3+ A
(Neg - Trace)
01/25/25 09:05
01/25/25 09:05
Vital Signs
Initial and Last Documented VS:
Initial Vital Signs
Pulse Resp Pulse Ox
102 22 94
01/25/25 08:56 01/25/25 08:56 01/25/25 08:56
Last Documented Vital Signs
Pulse Resp BP Pulse Ox
70 19 102/50 94
01/25/25 11:30 01/25/25 11:30 01/25/25 11:30 01/25/25 10:15
Daisylt;Bilyl Cooper PA-C - Last Filed: 01/25/25 12:55>
MDM/Problems Addressed
Differential Diagnosis Includes:
Patient with chest pain history of coronary disease recent stenting on Eliquis and Plavix. She has been on Eliquis for about 2 weeks. EKG shows atrial fibrillation with rapid response. Will attempt to rate control. Discussed with emergency room
attending. Cardizem bolus ordered. Labs pending.
<Billy Cooper PA-C - Last Filed: 01/25/25 12:55>
*Pulse Oximetry
Patient hypoxic: no
*Critical Care Note
Total Time (30-74mins, 75-104mins- exclusive of procedures): Not Applicable
<Billy Cooper PA-C - Last Filed: 01/25/25 12:55>
Update Note
Update Note:
Discussed with emergency room attending as well as cardiology. Troponin within normal limits but slightly detectable. Patient was given a 15 mg bolus of Cardizem and she converted into a sinus rhythm. Cardiology and to see patient. They ordered
an echocardiogram which demonstrated a small effusion. There was some concern for pericarditis with her. CRP was added which is elevated. After discussion with cardiology they will decide to keep the patient in the hospital for sotalol initiation
ED Attending Note
<Billy Cooper PA-C - Last Filed: 01/25/25 12:55>
-
Portions of this chart may have been created with voice recognition software.� Occasional wrong word or��sound alike� substitutions may have occurred due to the inherent limitations of voice recognition software.
<Emmanuel Ellis MD - Last Filed: 01/25/25 09:54>
ED Attending Note
Patient seen and examined by attending physician: Yes
I performed the substantive portion of visit, reviewed & personally made and approve the management plan that is documented in note by myself or BRIDGER.: Yes
ED Attending Note:
79-year-old female recent cardiac stent and recent PAF. Had been cardioverted placed on amiodarone. Post stent patient is on Plavix and Eliquis. Seen 2 days ago with recurring upper chest pain radiating into her neck. Workup at that time
including CT angiography was unremarkable. However symptoms have persisted since then. Mildly pleuritic in nature. No shortness of breath no fever. No abdominal pain.
On exam patient is nontoxic in no distress. Warm and dry. Perfusing well. Lungs are clear and equal. Heart regular rate and rhythm with a mild midsystolic murmur. Abdomen soft and nontender. She has no extremity swelling. She is nonfocal.
Previous records and testing reviewed. Initially presented in [facility] with a bundle branch block. This was similar to her previous EKG while in atrial fibrillation. Patient was given a dose of Cardizem. Following this she self converted to
normal sinus rhythm with no acute changes. However she continues to have just ongoing discomfort.
Nothing based on a recent CT to suspect dissection or pulmonary emboli.
However with ongoing symptoms recurring PAF warrants cardiology evaluation. Troponin
Discharge Plan
Departure
Patient Disposition: Admit
Date of Disposition: 01/25/25
Time of Disposition: 12:55
Presentation/result/management discussed w/ accepting /: [facility]
Discharge Problem:
Atrial fibrillation
Prescriptions:
No Action
losartan 25 mg Tablet
25 mg PO DAILY
hydrochlorothiazide 12.5 mg Capsule
12.5 mg PO DAILY
atorvastatin 80 mg Tablet
80 mg PO QPM Qty: 30 0RF
amiodarone [Pacerone] 200 mg Tablet
400 mg PO TID Qty: 120 0RF
Rx Instructions:
Amiodarone 200 mg TWO tabs (400 mg) tid for 10 days then 200 mg one tab one time a day
aspirin 81 mg Tablet,Chewable
81 mg PO DAILY Qty: 10 0RF
Eliquis 5 mg Tablet
5 mg PO BID Qty: 60 0RF
clopidogrel 75 mg Tablet
75 mg PO DAILY Qty: 30 0RF
Referrals:
Sadia Carlos DO [Family Provider]
Interventions
Interventions:
*Risk Screen - Suicide Last Done: 01/25/25 09:15
*General Assessment Last Done: 01/25/25 09:15
*Neglect/Abuse Screening Last Done: 01/25/25 09:15
*ED- Fall Risk Assessment Last Done: 01/25/25 09:15
*ED COVID-19 Vaccine History Last Done: 01/25/25 09:15
ED- Cardiac Assessment Last Done: 01/25/25 09:00
ED- Pulmonary Assessment Last Done: 01/25/25 09:00
Discharge Date and Time
Print Language: SLOVAK
[2025-01-25] MEDS: CARDIZEM 15 MG IV (09:03)
[2025-01-25] MEDS: TYLENOL 650 MG PO (09:10)
[2025-01-25 09:15] LABS: Hematocrit 37.5 % (37.0-47.0); Hemoglobin 12.7 g/dL (12.0-16.0); Mean Corp Hgb Conc. 33.9 g/dL (33.0-37.0); Mean Corpuscular Volume 85.6 fL (81.0-99.0); Nucleated Red Blood Cells % 0 %; Platelet Count 204 10^3/uL (130-400); Red Cell Dist. Width 13.3 % (11.5-14.5)
[2025-01-25 09:42] LABS: ALT (SGPT) 20 U/L (0-35); AST (SGOT) 18 U/L (14-36); Albumin 3.9 g/dl (3.5-5.0); Alkaline Phosphatase 73 U/L (38-126); Blood Urea Nitrogen 18 mg/dl (7-17); Calcium 9.0 mg/dl (8.4-10.2); Carbon Dioxide 31 mmol/L (22-30); Chloride 98 mmol/L (98-107); Glucose 121 mg/dl (70-99); Potassium 3.8 mmol/L (3.5-5.1); Sodium 134 mmol/L (135-145); Total Protein 6.5 g/dl (6.3-8.2); eGFR > 60.00
[2025-01-25 09:54] LABS: Troponin I 0.023 ng/ml
[2025-01-25 10:57] LABS: Urine Character Clear (Clear)
--- NOTE | 2025-01-25 11:01 | CON.CAR ---
Addendum entered and electronically signed by Yasir Gagnon MD 01/25/25 16:23:
I saw and evaluated the patient, and I provided the substantive portion of the medical decision making.
I reviewed and agree with the note by MANN Bhardwaj and it accurately reflects our care.
I personally performed the medical decision making of the this encounter and my assessment and plan is below:
79-year-old female with recent history of CAD status post PCI mid LAD stent 01/10/2025, paroxysmal atrial fibrillation with aberration and recurrent episodes on Eliquis and amiodarone, nonsustained VT, HFpEF, severe TR, mild MS presents for
reevaluation of an episode of chest pain. She had been seen in the ED last week for similar complaints. At that time CT scan was done and it showed possible pericardial effusion. Today, she is currently feeling better but still with persistent
chest pain that is worse with inspiration and sitting up. On arrival she also had chest pain and felt like it was similar to her prior admission, but improved. Additionally, recently she was seen at urgent care for a UTI and is undergoing
treatment with antibiotics. This presented with hematuria but resolved with treatment. Her daughter is at the bedside. She also states she just feels very fatigued. She has no energy at all, headache, nausea and anorexia.
On exam, she appears in mild distress, regular rate and rhythm normal S1-S2 systolic murmur heard in all areas, question rub, lungs clear to auscultation bilaterally abdomen soft extremities warm and well-perfused.
Labs shows white count of 12.5 sodium 134 BUN 18 creatinine 0.8, we added on a CRP which is elevated at 152 troponin 0.023 EKG shows normal sinus rhythm. EKG on arrival showed atrial fibrillation with left bundle branch block we performed an urgent
bedside echocardiogram that showed small circumferential pericardial effusion, normal LVEF, no sign of hemodynamic significance of her effusion.
Assessment:
Chest pain likely secondary to pericarditis
Anorexia/nausea/fatigue/malaise: Suspicious for amiodarone induced based on timing.
PAF: Symptomatic during recurrences with rapid rates
CAD with recent PCI 01/08/2025
Plan:
Admit for transition of amiodarone to sotalol as seems to not be tolerating this well--intensive monitoring required with serial EKG tracings
Will add half dose colchicine given recent amiodarone load and high-dose aspirin taper for treatment of pericarditis
Would will add PPI and repeat her echocardiogram to rule out expansion of pericardial effusion with triple therapy(given recent location, size and timing of PCI, she is at moderate risk for IST which would offer a large mortality)
Once pericarditis has improved, will hopefully transition to a strategy of pursuing rhythm control through ablation.
Comment:
Original Note:
Consultation
Consultation Request
Date/Time Consultation Requested: 01/25/25929
Date/Time Consultation Performed: 01/25/25 103
Requesting Provider: Rui Cooper
Performing Provider: Nkechi DARNELL for Dr. Gagnon
Reason for Consultation: chest pain
Medical History
-
Chief Complaint: chest pain
History of Present Illness:
79 y/o female with CAD with mid LAD stent (01/10/25), AFIB (with aberration seen last admit) on Eliquis and amiodarone, NSVT, hypertension, HFpEF, severe TR, mild MS who is here for evaluation. She was hospitalized about 2 weeks ago with type II MN
(AFIB with RVR as precipitant). She had WCT, which mostly was from aberration per Dr. Donis, though some NSVT was noted. She was treated with amiodarone with plan for OP ablation. She did have a cath and had mid LAD stent at that time as well. She
is now back since she has had chest discomfort since Thursday night. It is in her mid upper chest and goes up to her neck bilaterally. It is constant and sharp. It is worse with inspiration and cough, and also worse with movement. She was evaluated in
the ER on Thursday and trop was normal and CT showed no dissection, aneurysm, or PE. She did have a small pericardial effusion by CT. Otherwise, she had blood in her urine on Thursday and went to urgent care and was treated for UTI and now no more
hematuria. She reports significant headache (helped by tylenol), not sleeping, not eating, nausea. Her whole body hurts and she is fatigued. She felt chills last night. Daughter is at bedside. Trop is unremarkable. Rhythm on arrival was AFIB with
RVR with LBBB, but now she is in SR. She is now on amiodarone 200 mg daily after load.
This will serve as the history and physical.
Past Medical History
Past Medical History: Arrhythmias, CAD, CHF and HTN
Social History
Tobacco: Non-Smoker
Family History
Family History: Reviewed & Not Pertinent
Allergies / Home Medications
Allergy/AdvReac Type Severity Reaction Status Date / Time
sulfamethoxazole (From Allergy Intermediate Nausea / Verified 01/23/25 17:40
Bactrim) Vomiting
trimethoprim (From Bactrim) Allergy Intermediate Nausea / Verified 01/23/25 17:40
Vomiting
�Medication �Instructions �Recorded �Confirmed �Type
hydrochlorothiazide 12.5 mg capsule 12.5 mg PO DAILY 01/08/25 01/08/25 History
losartan 25 mg tablet 25 mg PO DAILY 01/08/25 01/08/25 History
amiodarone 200 mg tablet (Pacerone)
daily
apixaban 5 mg tablet (Eliquis) 5 mg PO BID #60 tabs 01/11/25 Rx
atorvastatin 80 mg tablet 80 mg PO QPM #30 tabs 01/11/25 Rx
clopidogrel 75 mg tablet 75 mg PO DAILY #30 tabs 01/11/25 Rx
Review of Systems
-
History Source: Patient
All other systems: Negative unless noted
Constitutional: Fatigue and Chills
Cardiac: Chest Pain
Abdomen/GI: Nausea
Neurological: Headache
Physical Exam
Vital Signs
Pulse Resp BP Pulse Ox
71 22 101/57 93
01/25/25 10:00 01/25/25 10:00 01/25/25 10:00 01/25/25 10:00
Lab Results
01/25/25 09:05
01/25/25 09:05
Troponin I 0.023 ng/ml 01/25/25 09:05
Physical Exam
General: Well Developed, Well Nourished and No Apparent Distress
HEENT: Normocephalic and Anicteric
Respiratory: Clear and Non Labored Respirations
Cardiac: Regular Rhythm and Murmur (III/ systolic murmur)
Musculoskeletal: No Edema
Skin: Warm and Dry
Neuro: AO x 3
Psych: Calm
Impression / Plan
-
Chest discomfort:
-trop and EKG (in SR) okay
-suspect pericarditis. Echo shows small effusion and CRP is elevated. Check f/u echo study next week- will contact office to arrange.
-Add ASA 650 mg TID- with plan for taper at d/c based on response (Plavix to stop while on this- see below)
Nausea, poor appetite, headache, fatigue:
-likely amiodarone side effects- will stop amiodarone
-ultimate plan for ablation (timing TBD), but AAD plan as below
PAF:
-was in AFIB with RVR, now in SR
-stop amiodarone. Will start sotalol, which requires intensive monitoring. Check EKG's and monitor telemetry per protocol. QTC is 416 ms to manual assessment.
-on Eliquis for OAC- will continue
-ultimate plan is for ablation- has visit next week with Dr. Hurtado- check echo prior as above, to help determine appropriate timing
CAD with LAD stent:
-trop is fine
-echo with normal EF
-currently on Plavix/Eliquis. However, with pericarditis, will stop Plavix and start ASA course as above.
HFpEF: chronic
-not overloaded to assessment
Recent UTI:
-finishing up abx course tomorrow per patient- will continue through tomorrow as planned
Data Reviewed
-
EKG: Tracing Personally Visualized and interpreted (SR 80 BPM)
Medical Tests (Nuc Med, Echo etc): Report Reviewed by me (echo 01/10/25: Normal biventricular size and systolic function. Mild LVH. 2. Mild calcific mitral stenosis with extensive MAC, mild MR. Mean gradient 4 mmHg, est. MVA greater than 1.5 cm².
3. Severe left atrial enlargement. 4. Severe tricuspid regurgitation, estimated PASP 49 mmHg.)
Labs: Labs Reviewed by me
[2025-01-25 11:06] LABS: Urine Squamous Cell >30 /LPF (Few)
[2025-01-25 12:28] LABS: C-Reactive Protein 152.10 mg/L (0.0-10.00)
[2025-01-25] MEDS: PROTONIX 40 MG PO (16:00)
[2025-01-25] MEDS: PLAVIX 75 MG PO (16:12)
[2025-01-25] MEDS: ASPIRIN 650 MG PO ×2 (16:18→22:54)
[2025-01-25] MEDS: LIPITOR 80 MG PO (16:19)
--- NOTE | 2025-01-25 16:57 | CM ---
Reviewed chart. Met with Mrs. Stoddard and her daughter to review discharge plans. She states prior to admission she resides with her son in a two story home without any steps to enter. She states she has a full flight of steps to get to
bedroom/full bathroom. She states she has a powder room on the first floor. She states prior to admission she was independent with ambulation and adls. She states she does not have any DME in the home. She states she has a prescription plan and
uses [facility] pharmacy.. Will need to see her current functional level to see if she will have any skilled care needs. We reviewed Eliquis Patient assistance program and the PACE program to see if she would qualify for any assistance with medications.
Will give her the applications. Medical work-up in progress. The discharge plan is to return home with her son and [facility] when medically stable.
--- NOTE | 2025-01-25 17:00 | PTCARENOTE ---
Pt received at 1500 from the ED. SR, rate in the 70's to 80's. Denies any chest pain at this time while lying in bed. Room air sat 97%. Denies any sob.
[2025-01-25] MEDS: COLCHICINE 0.3 MG PO (18:19)
[2025-01-25] MEDS: ELIQUIS 5 MG PO (20:11)
[2025-01-25] MEDS: BETAPACE 80 MG PO (20:11)
[2025-01-25] MEDS: MACROBID 100 MG PO (20:11)
--- NOTE | 2025-01-26 00:30 | PTCARENOTE ---
Patient ambulating self in room. Tele monitor shows NSR. Denies any pain or SOB. Sating 92% RA w/ crackles in the left base. 1st dose of Sotalol 80mg administered at 20:11, EKG obtained 2hrs post per protocol. QTc 448. Pt denies any chest
discomfort. Pt aware of POC, call arroyo in reach.
[2025-01-26 04:09] VITALS: BP 117/53
[2025-01-26 04:38] LABS: Hematocrit 35.3 % (37.0-47.0); Hemoglobin 11.9 g/dL (12.0-16.0); Mean Corp Hgb Conc. 33.7 g/dL (33.0-37.0); Mean Corpuscular Volume 85.3 fL (81.0-99.0); Platelet Count 199 10^3/uL (130-400); Red Cell Dist. Width 13.3 % (11.5-14.5)
[2025-01-26] MEDS: MILK OF MAGNESIA 30 ML PO (05:13)
[2025-01-26] MEDS: TYLENOL 650 MG PO (05:13)
[2025-01-26 05:14] LABS: Blood Urea Nitrogen 31 mg/dl (7-17); Calcium 9.2 mg/dl (8.4-10.2); Carbon Dioxide 29 mmol/L (22-30); Chloride 98 mmol/L (98-107); Estimated Creatinine Clearance 45 ml/min; Glucose 104 mg/dl (70-99); Potassium 4.0 mmol/L (3.5-5.1); Sodium 133 mmol/L (135-145); eGFR > 60.00
[2025-01-26 05:19] VITALS: BMI 27.9
--- NOTE | 2025-01-26 05:25 | PTCARENOTE ---
Morning vitals obtained. Pulse ox 88% RA. Instructed pt to perform deep breathing exercises, despite breathing techniques pulse ox remained 88%. This RN applied 2L for comfort. Pulse ox currently sating 94% on 2L O2. Denies any SOB at this time. Pt
c/o pain at the upper mid chest. Reports pain is 6/10 and described as 'sharp /pressure'. EKG obtained which showed Sinus Bradycardia w/ nonspecific T wave abnormality. Josselin LOG ROPER made aware via TT, EKG sent. Orders obtained for PRN Tylenol.
Medication administered--see JUL for details. Pt currently laying in bed w/ call arroyo in reach.
[2025-01-26 07:31] VITALS: BP 105/49
[2025-01-26] MEDS: BETAPACE 80 MG PO (07:57)
[2025-01-26] MEDS: MACROBID 100 MG PO ×2 (07:59→19:44)
[2025-01-26] MEDS: COZAAR 25 MG PO (07:59)
[2025-01-26] MEDS: ELIQUIS 5 MG PO ×2 (07:59→19:44)
[2025-01-26] MEDS: PLAVIX 75 MG PO (07:59)
[2025-01-26] MEDS: COLCHICINE 0.3 MG PO (08:15)
[2025-01-26] MEDS: PROTONIX 40 MG PO (08:15)
[2025-01-26] MEDS: ORETIC 12.5 MG PO (08:16)
[2025-01-26] MEDS: ASPIRIN 650 MG PO ×2 (08:16→16:31)
--- NOTE | 2025-01-26 08:37 | W.PN.CD ---
Today's Communication / Plan
-
continue sotalol load with intensive monitoring
continue treatement for pericarditis
Impression / Plan
-
Pericarditis:
-imporoving but still with some plueritic pain
-trop and EKG (in SR) okay
-s Echo shows small effusion and CRP is elevated.
-colchicine started, dose adjusted given recent amiodarone load
-Add ASA 650 mg TID- with plan for taper at d/c based on response
Nausea, poor appetite, headache, fatigue:
-likely amiodarone side effects- will stop amiodarone
-ultimate plan for ablation (timing TBD), but AAD plan as below
PAF:
-was in AFIB with RVR, now in SR
-stop amiodarone. Will start sotalol, which requires intensive monitoring. Given CrCL<60 will change to qd.
- Check EKG's and monitor telemetry per protocol.
-on Eliquis for OAC- will continue
-ultimate plan is for ablation- has visit next week with Dr. Hurtado- check echo prior as above, to help determine appropriate timing
CAD with LAD stent:
-trop is fine
-echo with normal EF
-currently on Plavix/Eliquis. d/w IC, will use triple therapies given recent placement, size, length and location of the stent
HFpEF: chronic
-not overloaded to assessment
Recent UTI:
-finishing up abx course tomorrow per patient- will continue through tomorrow as planned
Physical Exam
Vital Signs/Labs
Vital Signs
Temp Pulse Resp BP Pulse Ox
97.9 F 55 20 117/53 91
01/26/25 07:31 01/26/25 05:00 01/26/25 07:31 01/26/25 04:09 01/26/25 07:31
01/25/25 01/26/2525
06:59 06:59 06:59
Actual Weight 152 lb 8.958 oz
01/26/25 04:27
01/26/25 04:27
LAB Results
01/25/25
09:05
Troponin I 0.023
Physical Exam
Constitutional: No acute distress
Cardiovascular: Rhythm & rate is regular, Diastolic murmur absent, Pedal edema present and Systolic murmur present
Respiratory: Respiratory effort normal, Lungs clear to auscul., Wheeze Absent, Crackles Absent and Rhonchi Absent
Neuro/Psych: AO x 3
Data Reviewed
-
Date of Service: January 26, 2025
EKG: Tracing Personally Visualized and interpreted (sinus QTC <500m/s)
--- NOTE | 2025-01-26 11:26 | CM ---
Reviewed chart. Met with Mrs. Stoddard to review discharge plans. She states she is feeling a little better. We reviewed [facility]. She states she would like to see how she feels before making a decision about [facility]. Gave her the PACE
Application and the Patient Assistance Program Application for [place]. Prior to admission she resides with her son in a two story home without any steps to enter. She has a full flight of steps to get to bedroom/full bathroom. She has a powder
room on the first floor. Prior to admission she was independent with ambulation and adls. She does not have any DME in the home. She has a prescription plan and uses [facility] pharmacy.. Will need to see her current functional level to see if she will
have any skilled care needs. Medical work-up in progress. The discharge plan is to return home with her son and [facility] when medically stableif she is agreeable.
[2025-01-26 11:44] VITALS: BP 98/56
--- NOTE | 2025-01-26 11:56 | PTCARENOTE ---
Pt received this am with no c/o of any chest pain or sob. Room air sat 97%. OOB ad stevenson, gait steady. Tolerating Sotalol without any issues. SB - SR, rate in the 50's to 70's.
[2025-01-26 15:50] VITALS: BP 92/52
[2025-01-26] MEDS: LIPITOR 80 MG PO (17:04)
[2025-01-26 19:16] VITALS: BP 90/51
--- NOTE | 2025-01-26 19:27 | PTCARENOTE ---
Pt c/o of mild nausea later this afternoon. Pt tried some crackers and arthur jose manuel. Denied need for nausea meds at that time. C/o of headaches earlier and had relief with tylenol.
[2025-01-26] MEDS: TUMS CHEWABLE TABLET 200 MG PO (19:51)
--- NOTE | 2025-01-26 20:11 | PTCARENOTE ---
Addendum entered by Annalee Lamb RN 01/27/25 00:27:
Pt vomited around 2230. States some relief from nausea. Call arroyo within reach.
Addendum entered by Annalee Lamb RN 01/27/25 00:26:
Tums did not relieve nausea. Tigan IM ordered-- given-- see MAR.
Original Note:
Received pt @ change of shift. AAOx3, BP 90/51, HR 50s-- SB on monitor. Denies SOB and CP @ this time. C/O nausea-- offered medication. Pt agreed to try TUMS-- see MAR. Discussed plan of care. Pt verbalizes understanding. Call arroyo within reach.
[2025-01-26] MEDS: TIGAN 200 MG IM (21:10)
[2025-01-26] MEDS: ASPIRIN PO ×2 (21:10→22:18)
[2025-01-26 22:15] VITALS: BP 118/73
[2025-01-27] VITALS (7 sets, daily range): BP systolic 101–120; BP diastolic 45–70; BMI 28.4
--- NOTE | 2025-01-27 09:13 | PTCARENOTE ---
received patient this am in bed, nauseated. Dr. Donis on rounds informed him that patient is nauseated and vomiting, unable to tolerate medications. Dr. Donis will look at medication list and change medication. also TT Dr. Donis to order something
for nausea and that patient would like Dr. Donis to call daughter Modesta [phone] and also to sing papers so patient can afford Eliquis. monitor shows NSR, VSS. patient attemepted to take a few bites of breakfast, unsuccessful. no am medications
given yet, / Gagandeep aware.
--- NOTE | 2025-01-27 10:01 | W.PN.CD ---
Today's Communication / Plan
-
Suspect GI upset might be from HIGH DOSE ASPIRIN => will decrease ASA to 324 TID if tolerated for 2 weeks then tapered over next 2-3 weeks
Colchicine for [address] Jasmine want DAPT for 4 weeks from stent (smaller stent)
Continue sotalol pabon
Daily EKG
Impression / Plan
-
Pericarditis:
-improving but still with some pleuritic pain
-trop and EKG (in SR) okay
-Echo shows small effusion and CRP is elevated.
-colchicine started, dose adjusted given recent amiodarone load
-ASA 650 mg TID => decrease b/c of GI side effects- with plan for taper at d/c based on response
Nausea, poor appetite, headache, fatigue:
-likely amiodarone side effects- will stop amiodarone
-ultimate plan for ablation (timing TBD), but AAD plan as below
PAF:
-was in AFIB with RVR, now in SR
-off amiodarone. In sinus on new sotalol, which requires intensive monitoring. CrCL<60 one time daily
-EKG and tele OK
-on Eliquis for OAC- will continue
-ultimate plan is for ablation- has visit next week with Dr. Hurtado
- check echo prior as above, to help determine appropriate timing
CAD with LAD stent:
-trop is fine
-echo with normal EF
-currently on Plavix/Eliquis. d/w IC, will use triple therapies (FOR AT LEAST 4 WEEKS post STENT) given recent placement, size, length and location of the stent
HFpEF: chronic
-not overloaded to assessment
Recent UTI:
-finishing up abx course tomorrow per patient- will continue through tomorrow as planned
Subjective:
CP improved but not resolved. +Nausea
Physical Exam
Vital Signs/Labs
Vital Signs
Temp Pulse Resp BP Pulse Ox
98.8 F 61 20 111/68 97
01/27/25 07:23 01/27/25 09:00 01/27/25 07:23 01/27/25 07:23 01/27/25 08:30
01/26/25 01/27/25 01/28/25
06:59 06:59 06:59
Actual Weight 69.2 kg 70.3 kg
01/26/25 04:27
01/26/25 04:27
LAB Results
01/25/25
09:05
Troponin I 0.023
Physical Exam
Constitutional: No acute distress
EENT: Anicteric
Cardiovascular: Rhythm & rate is regular and Pedal edema is absent
Respiratory: Respiratory effort normal and Lungs clear to auscul.
GI: Soft and Distention absent
Data Reviewed
-
Date of Service: January 27, 2025
[2025-01-27] MEDS: BETAPACE 80 MG PO (10:11)
[2025-01-27] MEDS: PROTONIX 40 MG PO (10:11)
[2025-01-27] MEDS: MACROBID PO (10:12)
[2025-01-27] MEDS: ELIQUIS 5 MG PO ×2 (10:12→19:43)
[2025-01-27] MEDS: COZAAR 25 MG PO (10:12)
[2025-01-27] MEDS: ORETIC 12.5 MG PO (10:12)
[2025-01-27] MEDS: PLAVIX 75 MG PO (10:12)
[2025-01-27] MEDS: COLCHICINE 0.3 MG PO (10:13)
[2025-01-27] MEDS: ASPIRIN PO (10:16)
--- NOTE | 2025-01-27 12:51 | W.PN.UPDATE ---
Update Note
Progress Note Update
Nausea is significant.
I will add Zofran HERE WHILE ON TELE desptie sotalol and recent amio. Will watch carefully and prefer she not go home within 12 hours of the last Zofran dose.
--- NOTE | 2025-01-27 13:38 | CM ---
Addendum entered by Liliana Gallegos 01/27/25 15:46:
Received telephone call from [facility] [employer] who states they received the applications and will register her on Thursday. Then they will mail her the card and information on scheduling.
Original Note:
Reviewed chart. Met with Mrs. Stoddard to review discharge plans. She states she is feeling better. We reviewed [facility] Services and she is agreeable to [facility]. Telephone call to [facility]ia[facility] to make the referral. Referral sent. Also
she expressed interest in going to [facility] Re[facility]. at [facility] but she has transportation issues. We reviewed [facility] [employer] [facility] Transportation and out of pocket cost. We completed the [employer] Application with proof of age and e-mailed to [facility] [employer] [facility]. Also
faxed the Patient Assistance Application for [employer] to [employer] to see if she would qualify. Prior to admission she resides with her son in a two story home without any steps to enter. She has a full flight of steps to get to
bedroom/full bathroom. She has a powder room on the first floor. Prior to admission she was independent with ambulation and adls. She does not have any DME in the home. She has a prescription plan and uses [facility] pharmacy.. Will need to see her
current functional level to see if she will have any skilled care needs. Medical work-up in progress. The discharge plan is to return home with her son and [facility] when medically stable.
[2025-01-27] MEDS: ZOFRAN 4 MG IV (13:47)
[2025-01-27] MEDS: FLUSH (NSS) 1 FLUSH IV (13:48)
--- NOTE | 2025-01-27 13:49 | PTCARENOTE ---
Addendum entered by Kimberlyn Garvey RN 01/27/25 15:20:
Zofran improved patients nausea.
Original Note:
patient continues to c/o nausea, TT Dr. Donis, telmafran IV given as ordered.
[2025-01-27] MEDS: ASPIRIN 325 MG PO ×2 (15:26→21:24)
[2025-01-27] MEDS: LIPITOR 80 MG PO (17:14)
--- NOTE | 2025-01-28 00:03 | PTCARENOTE ---
Pt. has tolerated PO medications this shift (including aspirin) without any nausea/vomiting thus far. VSS; SB in the 50's on the monitor. Currently resting quietly.
[2025-01-28 04:00] VITALS: BP 120/54
[2025-01-28 07:05] VITALS: BMI 28.2
[2025-01-28 07:08] VITALS: BP 121/52
[2025-01-28] MEDS: BETAPACE 80 MG PO (08:23)
[2025-01-28] MEDS: ELIQUIS 5 MG PO ×2 (08:24→20:54)
[2025-01-28] MEDS: PLAVIX 75 MG PO (08:24)
[2025-01-28] MEDS: ORETIC 12.5 MG PO (08:24)
[2025-01-28] MEDS: ASPIRIN 325 MG PO ×3 (08:24→22:15)
[2025-01-28] MEDS: PROTONIX 40 MG PO (08:24)
[2025-01-28] MEDS: COZAAR 25 MG PO (08:24)
[2025-01-28] MEDS: COLCHICINE 0.3 MG PO (08:24)
--- NOTE | 2025-01-28 10:43 | W.PN.UPDATE ---
Update Note
Progress Note Update
Headache, nausea, pericarditis, elevated inflammatory markers all point to a viral pericarditis but her nausea could also have been amiodarone related. Pericarditis after +troponin event raises a post-infarct syndrome. On antiplatelet and
anticoagulant raises risk of hemorrhagic pericarditis but the effusion is stable on f/u echo which is favorable as she remains on meds for AFib and CAD with recent troponin elevation and stenting.
Will check a CT of head as she has a headache and is on Eliquis.
Daughter updated.
[2025-01-28 11:56] VITALS: BP 99/60
--- NOTE | 2025-01-28 13:48 | W.PN.CD ---
Today's Communication / Plan
-
[facility]H for her MADDEN
Cont meds
Limited echo thursday
Impression / Plan
-
Pericarditis:
-improving but still with some pleuritic pain
-trop and EKG (in SR) okay
-Echo shows small effusion and CRP is elevated.
-colchicine started, dose adjusted given recent amiodarone load
-ASA 650 mg TID => decrease b/c of GI side effects- with plan for taper at d/c based on response
Nausea, poor appetite, headache, fatigue:
-much improved
MADDEN
- CTH
PAF:
-was in AFIB with RVR, now in SR
-off amiodarone. In sinus on new sotalol, which requires intensive monitoring. CrCL<60 one time daily
-EKG and tele OK
-on Eliquis for OAC- will continue
-ultimate plan is for ablation- has visit next week with Dr. Hurtado
- check echo prior as above, to help determine appropriate timing
CAD with LAD stent:
-trop is fine
-echo with normal EF
-currently on Plavix/Eliquis. d/w IC, will use triple therapies (FOR AT LEAST 4 WEEKS post STENT) given recent placement, size, length and location of the stent
HFpEF: chronic
-not overloaded to assessment
Recent UTI:
-finishing up abx course tomorrow per patient- will continue through tomorrow as planned
Subjective:
Feeling improved overall
Physical Exam
Vital Signs/Labs
Vital Signs
Temp Pulse Resp BP Pulse Ox
97.6 F 51 16 99/60 96
01/28/25 11:58 01/28/25 13:00 01/28/25 11:58 01/28/25 11:56 01/28/25 11:58
09/05/1101/28/25 01/29/25
06:59 06:59 06:59
Actual Weight 154 lb 15.759 oz 154 lb 1.65 oz
01/26/25 04:27
01/26/25 04:27
Physical Exam
Constitutional: No acute distress and Comfortable
EENT: Anicteric
Cardiovascular: Rhythm & rate is regular and Pedal edema is absent
Respiratory: Respiratory effort normal and Lungs clear to auscul.
GI: Soft
Neuro/Psych: AO x 3
Data Reviewed
-
Date of Service: January 28, 2025
Medical Decision Making: Reviewed Test Results
EKG: Tracing Personally Visualized and interpreted (sr)
Echo: Tracing Personally Visualized and interpreted and Report Reviewed by me
Labs: Labs Reviewed by me
[2025-01-28 15:01] VITALS: BP 113/80
--- NOTE | 2025-01-28 15:59 | PTCARENOTE ---
VS and Assessment stable as documented. Pt w/o complaints of nausea or headaches. Family at bedside most of day. Pt has taken multiple walks w/o CP or complaints.
[2025-01-28] MEDS: LIPITOR 80 MG PO (16:14)
[2025-01-28 19:50] VITALS: BP 100/48
[2025-01-28 22:13] VITALS: BP 137/99
--- NOTE | 2025-01-28 23:31 | PTCARENOTE ---
assumed care of patient at the change of shift. resting in bed comfortably. denies any pain/sob. denies any nausea at this time. patient states not having a BM for 2 days- requesting stool softener in the morning. SB/SR on tele- 50s-60s. bp stable.
96% on RA while sitting in the chair. laying in bed- sp02 88%. placed patient on 2L NC- 93%. lungs clear. reviewed plan of care with patient and verbalized understanding. call arroyo within reach.makes needs known.
[2025-01-29] VITALS (7 sets, daily range): BP systolic 87–128; BP diastolic 50–84; BMI 28.2
[2025-01-29] MEDS: ASPIRIN 325 MG PO ×3 (08:51→22:04)
[2025-01-29] MEDS: COLCHICINE 0.3 MG PO (08:51)
[2025-01-29] MEDS: PROTONIX 40 MG PO (08:52)
[2025-01-29] MEDS: ORETIC 12.5 MG PO (08:52)
[2025-01-29] MEDS: ELIQUIS 5 MG PO ×2 (08:52→19:18)
[2025-01-29] MEDS: PLAVIX 75 MG PO (08:52)
[2025-01-29] MEDS: COZAAR 25 MG PO (08:53)
[2025-01-29] MEDS: BETAPACE 80 MG PO (08:53)
--- NOTE | 2025-01-29 13:43 | W.PN.CD ---
Today's Communication / Plan
-
Cont meds
Echo tomorrow
Likely dc tomorrow
Impression / Plan
-
Pericarditis:
-improving but still with some pleuritic pain
-trop and EKG (in SR) okay
-Echo shows small effusion and CRP is elevated.
- update echo Thursday
-colchicine started, dose adjusted given recent amiodarone load
-ASA 650 mg TID => decrease b/c of GI side effects- with plan for taper at d/c based on response
Nausea, poor appetite, headache, fatigue:
-much improved
MADDEN
- CTH no acute abnormality
PAF:
-was in AFIB with RVR, now in SR
-off amiodarone. In sinus on new sotalol, which requires intensive monitoring. CrCL<60 one time daily
-EKG and tele OK
-on Eliquis for OAC- will continue
-ultimate plan is for ablation- has visit next week with Dr. Hurtado
- check echo prior as above, to help determine appropriate timing
CAD with LAD stent:
-trop is fine
-echo with normal EF
-currently on Plavix/Eliquis. d/w IC, will use triple therapies (FOR AT LEAST 4 WEEKS post STENT) given recent placement, size, length and location of the stent
HFpEF: chronic
-not overloaded to assessment
Recent UTI:
-finishing up abx course tomorrow per patient- will continue through tomorrow as planned
Subjective:
Conts to feel better
Physical Exam
Vital Signs/Labs
Vital Signs
Temp Pulse Resp BP Pulse Ox
97.4 F 53 20 106/84 96
01/29/25 12:18 01/29/25 10:00 01/29/25 12:18 01/29/25 08:53 01/29/25 12:18
01/28/25 01/29/25 01/30/25
06:59 06:59 06:59
Actual Weight 154 lb 1.65 oz
01/26/25 04:27
01/26/25 04:27
Physical Exam
Constitutional: No acute distress and Comfortable
EENT: Anicteric
Cardiovascular: Rhythm & rate is regular and Pedal edema is absent
Respiratory: Respiratory effort normal and Lungs clear to auscul.
GI: Soft
Neuro/Psych: AO x 3
Data Reviewed
-
Date of Service: January 29, 2025
EKG: Tracing Personally Visualized and interpreted (sr)
Echo: Tracing Personally Visualized and interpreted and Report Reviewed by me
Labs: Labs Reviewed by me
--- NOTE | 2025-01-29 16:49 | PTCARENOTE ---
Pt SR/SB on the monitor, hr in the 50s, vss. pt offers no complaints at this time. pt is ambulating through the halls and in room and tolerating well. pt educated on plan of care and tolerated well. call arroyo within reach.
[2025-01-29] MEDS: LIPITOR 80 MG PO (17:20)
[2025-01-29] MEDS: MIRALAX 17 GRAMS PO (17:20)
--- NOTE | 2025-01-29 21:13 | PTCARENOTE ---
assumed care of patient at the change of shift. offers no complaints at this time. denies any cp/sob. some dyspnea per patient when walking to halls. nausea has improved per patient. no BM today- miralax given on previous shift. patient denies any
discomfort, 'something is moving.' PM care completed per patient. educated to call RN with any changes. call arroyo within reach.
[2025-01-30 05:00] VITALS: BP 138/53
[2025-01-30 05:01] VITALS: BP 142/50
[2025-01-30 07:08] VITALS: BP 139/53
[2025-01-30] MEDS: ORETIC 12.5 MG PO (07:52)
[2025-01-30] MEDS: COZAAR 25 MG PO (07:52)
[2025-01-30] MEDS: ELIQUIS 5 MG PO (07:52)
[2025-01-30] MEDS: MIRALAX 17 GRAMS PO (07:52)
[2025-01-30] MEDS: PROTONIX 40 MG PO (07:53)
[2025-01-30] MEDS: COLCHICINE 0.3 MG PO (07:53)
[2025-01-30] MEDS: BETAPACE 80 MG PO (07:53)
[2025-01-30] MEDS: PLAVIX 75 MG PO (07:54)
[2025-01-30] MEDS: ASPIRIN 325 MG PO ×2 (07:54→15:54)
[2025-01-30 08:06] VITALS: BMI 28.4
--- NOTE | 2025-01-30 09:52 | W.PN.CD ---
Today's Communication / Plan
-
Home today if echo stable or better
1 yr of Plavix then stop and then single agent Eliquis
ASA taper over next 2 weeks
3 months of Colchicine
Continue PPI until Plavix stops
F/u as planned
Impression / Plan
-
Pericarditis:
-improved, no more CP
-trop and EKG (in SR) okay
-Echo shows small effusion and CRP is elevated.
- update echo Today
-colchicine started, dose adjusted given recent amiodarone load, 3 month course planned
-ASA 650 mg TID => decrease b/c of GI side effects- with plan for taper at d/c based on response => 2 week taper to off
Nausea, poor appetite, headache, fatigue:
-much improved
MADDEN
- CTH no acute abnormality
- improving
PAF:
-was in AFIB with RVR, now in SR
-off amiodarone. In sinus on new sotalol, which requires intensive monitoring. CrCL<60 one time daily
-EKG and tele OK
-on Eliquis for OAC- will continue
-ultimate plan is for ablation- has visit next week with Dr. Hurtado
- check echo prior as above, to help determine appropriate timing
CAD with LAD stent:
-trop is fine
-echo with normal EF
-currently on Plavix/Eliquis. d/w IC, will use triple therapies (FOR AT LEAST 4 WEEKS post STENT) given recent placement, size, length and location of the stent
HFpEF: chronic
-not overloaded to assessment
Recent UTI:
-finishing up abx course tomorrow per patient- will continue through tomorrow as planned
Subjective:
Conts to feel better. Eager for home
Physical Exam
Vital Signs/Labs
Vital Signs
Temp Pulse Resp BP Pulse Ox
98.0 F 58 16 139/53 93
01/30/25 07:07 01/30/25 08:00 01/30/25 07:07 01/30/25 07:53 01/30/25 07:19
01/29/25 01/30/25 01/31/25
06:59 06:59 06:59
Actual Weight 69.9 kg 70.3 kg
01/26/25 04:27
01/26/25 04:27
Physical Exam
Constitutional: No acute distress
EENT: Anicteric
Cardiovascular: Rhythm & rate is regular and Pedal edema is absent
Respiratory: Respiratory effort normal and Lungs clear to auscul.
GI: Soft and Distention absent
Neuro/Psych: AO x 3
Data Reviewed
-
Date of Service: January 30, 2025
--- NOTE | 2025-01-30 12:49 | W.DS.TRANS ---
DC Summary - Chief Digital Officer
-
Discharge Instructions:
Sleep Apnea Risk Low
Discharge Diagnosis/Procedures Pericarditis
Pericardial effusion
Atrial fibrillation with rapid ventricular
response
Coronary artery disease
Diet 2 Gram Sodium
Activity No strenuous activity
Driving Restrictions As prior to admission
Bathing Restrictions None
Others Tests Echocardiogram in one to two weeks. Please see
attached order. Call the cardiology office to
arrange.
Specialty Instructions Weigh Daily
Instructions:
Stand-Alone Forms:
Changes to Home Medications: Yes
Discharge Medications:
DC Medications w/original date entered in [employer]
hydrochlorothiazide 12.5 mg capsule 12.5 mg PO DAILY Blood Pressure 01/08/25
losartan 25 mg tablet 25 mg PO DAILY Blood Pressure 01/08/25
apixaban 5 mg tablet (Eliquis) 5 mg PO BID #60 tabs 01/11/25
atorvastatin 80 mg tablet 80 mg PO QPM #30 tabs 01/11/25
clopidogrel 75 mg tablet 75 mg PO DAILY #30 tabs 01/11/25
magnesium hydroxide 400 mg/5 mL oral suspension (Milk of Magnesia) 1,200 mg PO DAILY PRN constipation 01/25/25
meclizine 25 mg tablet 25 mg PO TIDPRN PRN vertigo 01/25/25
triamcinolone acetonide 0.1 % topical cream 1 applic topical BIDPRN PRN rash from tape 01/25/25
aspirin 325 mg tablet 324 mg (0.9969 x 325 mg) PO .taper #30 tabs 01/30/25
calcium carbonate (Calcium Antacid) 200 mg PO Q6HPRN PRN indigestion #1 tab 01/30/25
colchicine 0.6 mg tablet 0.3 mg (1/2 x 0.6 mg) PO DAILY #90 tabs 01/30/25
pantoprazole 40 mg tablet,delayed release 40 mg PO DAILY #90 tabs 01/30/25
polyethylene glycol 3350 17 gram oral powder packet 17 g PO DAILY #30 ea 01/30/25
sotalol 80 mg tablet 80 mg PO DAILY #60 tabs 01/30/25
Home Medication Changes
Stopped: Amiodarone, famotidine, nitrofurantoin
New: Aspirin, calcium carbonate, colchicine, pantoprazole, MiraLAX, sotalol
Pending Results: No
[2025-01-30 15:46] VITALS: BP 126/49
[2025-01-30 15:48] VITALS: BP 126/49
[2025-01-30] MEDS: LIPITOR 80 MG PO (15:54)
--- NOTE | 2025-01-30 16:12 | CM ---
Reviewed chart. Met [facility] Mrs. Stoddard and her daughter to review discharge plans. Received telephone call from [facility] who states the PCP will not sign the [facility]NA orders until after she is seen in her office. Daughter called and made an
appointment for 02/07/25 at 2:30 p.m. We reviewed [facility] Services and [facility] Telephone call to [facility]iaison to make the referral. Referral sent. Also she expressed interest in going to Cardiac Rehab. at [facility]
but she has transportation issues. We reviewed [employer] [facility] and out of pocket cost. We completed the [employer] Application with proof of age and e-mailed to [employer]. Also faxed the Patient Assistance Application for [employer] to [employer] to see if she would qualify. Prior to admission she resides with her son in a two story home without any steps to enter. She has a full flight of steps to get to bedroom/full bathroom. She has a powder room on the first floor. Prior
to admission she was independent with ambulation and adls. She does not have any DME in the home. She has a prescription plan and uses [facility] pharmacy.. Will need to see her current functional level to see if she will have any skilled care needs.
Medical work-up in progress. The discharge plan is to return home with [facility] son [facility] when medically stable.
== END 2025-01-30 16:22 | disposition home health service (06) | DRG 315 ==
LOC: IVU 13:48
PROVIDERS: Nurse Practitioner; Physician Assistant; ADMITTING PHYSICIAN Internal Medicine Cardiovascular Disease; EMERGENCY PHYSICIAN Emergency Medicine; FAMILY PHYSICIAN Family Medicine
DX: I30.1 Infective pericarditis (principal); I50.32 Chronic diastolic (congestive) heart failure; N39.0 Urinary tract infection, site not specified; I31.39 Other pericardial effusion (noninflammatory); I48.0 Paroxysmal atrial fibrillation; I25.10 Atherosclerotic heart disease of native coronary artery without angina pectoris; Z95.5 Presence of coronary angioplasty implant and graft; I11.0 Hypertensive heart disease with heart failure; I25.2 Old myocardial infarction; I44.7 Left bundle-branch block, unspecified; Z79.01 Long term (current) use of anticoagulants; Z79.02 Long term (current) use of antithrombotics/antiplatelets; Z79.899 Other long term (current) drug therapy; Z88.1 Allergy status to other antibiotic agents
CPT/HCPCS: 70450; 71275; 80048; 80053; 81003; 81015; 84484; 85025; 85027; 86140; 87086; 93005; 93308; 96374; 99284; 99285; Q9967

== ENCOUNTER 2025-02-08 15:28 | Inpatient (IN) | payer MEDICARE, OTHER, SELFPAY ==
[2025-02-08] VITALS (9 sets, daily range): BP systolic 112–152; BP diastolic 47–72; BMI 28.0; BMI 26.9
--- NOTE | 2025-02-08 12:04 | ED.GENMED ---
History of Present Illness
General
Chief Complaint: Breathing Problem
Source: patient, records and previous hospital records
Exam Limitations: none
Time Seen by Provider: 02/08/25 11:09
Nursing documentation reviewed up to this point in time: agreed with
History of Present Illness
History of Present Illness:
79-year-old female AF, recent admission with AF and FF small pericardial effusion discharged to home on the of this month she states since then every day she is getting more short of breath soft tissues yesterday and echocardiogram today
currently short of breath, came to the ER, here she is tachypneic hypoxic,
Past History
Past History
ED Past Medical History: Arrthythmia, CAD, CHF and Other (Pericardial effusion)
Social History
Tobacco: Non-smoker
Alcohol: None
Drug: None
Living: with family
Employment: Retired
Review of Systems
Review of Systems
All Other Systems: Not applicable
Constitutional: Reports fatigue; Denies fever
Respiratory: Reports trouble breathing; Denies cough
Cardiac: Denies palpitations
ABD/GI: Reports no symptoms
: Reports no symptoms
Musculoskeletal: Reports no symptoms
Neurological: Reports weakness
Hematologic/Lymphatic: Reports no symptoms
Psychiatric: Reports no symptoms
Phy Exam
Physical Exam
Physical Exam:
Physical Exam
General: Tachypneic 79-year-old female
Neck: No jaundice
Heart: Regular diminished heart sound
Lungs: Bilateral crackles
Abdomen: Nontender
Neuro: alert and oriented. no focal neurological deficits
Skin: no rash
Psychiatric: well kept. interactive and cooperative
Extremities: Edema is present
Scores
Heart Failure Risk
Heart Failure Risk Score: Yes
History of Stroke or TIA: No
History of intubation for respiratory distress: No
Heart rate on ED arrival >/= 110: Yes
SaO2 <90% on arrival on room air: Yes
HR >/=110 during 3min walk test (or too ill to perform test): Yes
ECG has acute ischemic changes: No
Urea >/=12mmol/L (BUN 33.6mg/dL): No
Serum CO2>/=35mmol/L: No
Troponin I or T elevated to [place] Level (0.4mg/dL): No
NT-proBNP >/=5,000ng/L (5,000pg/ml): No
HF Risk Score: 3
Admission Status: HIGH RISK 15.9% Consider SNF treatment or admission to hospital
Course
Orders/Labs/Results
Orders:
Orders
02/08/25 10:35
Electrocardiogram (*1) Urgent
Reason for Study: Chest Pain
EKG- Treatment ONCE
02/08/25 11:44
Cardiac Monitoring- Treatment ONCE
CR Chest Portable - 1 View Urgent
Comment:
Reason For Exam: sob
Reason Study Needs to be Portable: Patient Unstable
02/08/25 12:11
Complete Blood Count/With Diff Urgent
Comprehensive Metabolic Panel Urgent
Lipase Urgent
Magnesium Urgent
NT-proBNP Urgent
TSH Urgent
Troponin I Urgent
02/08/25 12:57
Furosemide [Lasix] 60 mg IV NOW STA
Potassium Chloride [KCl] 40 meq PO NOW STA
02/08/25 12:58
CARDIOLOGY CONSULT Routine
Consulting Provider: Darrion Roy
Was physician already notified: Yes
Abnormal Lab Results
02/08/25
12:11
RBC 3.35 L 10^6/uL
(4.20-5.40)
Hgb 9.5 L g/dL
(12.0-16.0)
Hct 28.2 L %
(37.0-47.0)
Abs Immat Gran (auto) 0.1 H 10^3/uL
(0-0.05)
Absolute Neuts (auto) 7.9 H 10^3/uL
(1.4-6.5)
Absolute Lymphs (auto) 1.0 L 10^3/uL
(1.2-3.4)
Absolute Monos (auto) 0.9 H 10^3/uL
(0.1-0.6)
Immature Gran % 0.6 H %
(0-0.5)
Neutrophils % 79.7 H %
(42.2-75.2)
Lymphocytes % 10.4 L %
(20.5-51.1)
Sodium 133 L mmol/L
(135-145)
Potassium 3.2 L mmol/L
(3.5-5.1)
BUN 22 H mg/dl
(7-17)
Glucose 104 H mg/dl
(70-99)
Magnesium 1.5 L mg/dl
(1.6-2.3)
Total Protein 5.9 L g/dl
(6.3-8.2)
Albumin 3.2 L g/dl
(3.5-5.0)
02/08/25 12:11
02/08/25 12:11
Vital Signs
Initial and Last Documented VS:
Initial Vital Signs
Temp Pulse Resp BP Pulse Ox
98.9 F 65 16 152/65 93
02/08/25 10:28 02/08/25 10:28 02/08/25 10:28 02/08/25 10:28 02/08/25 10:28
Last Documented Vital Signs
Temp Pulse Resp BP Pulse Ox
98.2 F 65 29 123/49 95
02/08/25 11:38 02/08/25 12:15 02/08/25 12:15 02/08/25 12:02/08/25 12:15
MDM/Problems Addressed
Differential Diagnosis Includes:
Pleural effusion pericardial effusion heart failure anemia electrolyte abnormality less likely ACS conceivably PE
MDM/Problems Addressed:
Shortness of breath fatigue
Chronic conditions affecting care: CAD, Cardiomyopathy and Arrhythmia
Acute Exacerbation and/or Progression of Chronic Illness: CAD, Cardiomyopathy and Arrhythmia
*Radiology
Radiology exam reviewed: preliminary read by ED provider
*Pulse Oximetry
SaO2: 87
Nasal Cannula flow liters per minute: 0
Oxygen Mode of Delivery: Room air
Patient hypoxic: yes
*Skidder Operator Interpretation
Rate: normal
Interpretation: normal
Heart Rate: 78
Rhythm: sinus
*Critical Care Note
Total Time (30-74mins, 75-104mins- exclusive of procedures): 32
Update Note
Update Note:
1 PM update labs noted verbal report no change from previous from her echo, proBNP chest x-ray noted will start diuretic message sent to cardiology and hospital
ED Attending Note
-
Portions of this chart may have been created with voice recognition software.� Occasional wrong word or��sound alike� substitutions may have occurred due to the inherent limitations of voice recognition software.
Discharge Plan
Departure
Prescriptions:
No Action
losartan 25 mg Tablet
25 mg PO DAILY
hydrochlorothiazide 12.5 mg Capsule
12.5 mg PO DAILY
atorvastatin 80 mg Tablet
80 mg PO QPM Qty: 30 0RF
Eliquis 5 mg Tablet
5 mg PO BID Qty: 60 0RF
clopidogrel 75 mg Tablet
75 mg PO DAILY Qty: 30 0RF
triamcinolone acetonide 0.1 % cream
1 applic TOPICAL BIDPRN PRN (Reason: rash from tape)
meclizine 25 mg tablet
25 mg PO TIDPRN PRN (Reason: vertigo)
magnesium hydroxide [Milk of Magnesia] 400 mg/5 mL Suspension
1,200 mg PO DAILY PRN (Reason: constipation)
polyethylene glycol 3350 17 gram Powder In Packet
17 g PO DAILY Qty: 30 0RF
aspirin 325 mg Tablet
324 mg PO .taper Qty: 30 0RF
Rx Instructions:
SEE ATTACHED INSTRUCTIONS!
sotalol 80 mg Tablet
80 mg PO DAILY Qty: 60 3RF
pantoprazole 40 mg Tablet,Delayed Release (Dr/Ec)
40 mg PO DAILY Qty: 90 0RF
calcium carbonate [Calcium Antacid] 200 mg calcium (500 mg) Tablet,Chewable
200 mg PO Q6HPRN PRN (Reason: indigestion) Qty: 1 0RF
colchicine 0.6 mg Tablet
0.3 mg PO DAILY Qty: 90 0RF
Referrals:
Sadia Carlos, DO [Family Provider]
Interventions
Interventions:
*Risk Screen - Suicide Last Done: 02/08/25 10:34
*General Assessment Last Done: 02/08/25 10:34
*Neglect/Abuse Screening Last Done: 02/08/25 11:44
*ED- Fall Risk Assessment Last Done: 02/08/25 11:44
*ED COVID-19 Vaccine History Last Done: 02/08/25 11:43
ED- Cardiac Assessment Last Done: 02/08/25 11:45
ED- Pulmonary Assessment Last Done: 02/08/25 11:47
Discharge Date and Time
Print Language: [id number]
[2025-02-08 12:38] LABS: Hematocrit 28.2 % (37.0-47.0); Hemoglobin 9.5 g/dL (12.0-16.0); Mean Corp Hgb Conc. 33.7 g/dL (33.0-37.0); Mean Corpuscular Volume 84.2 fL (81.0-99.0); Nucleated Red Blood Cells % 0 %; Platelet Count 224 10^3/uL (130-400); Red Cell Dist. Width 13.2 % (11.5-14.5)
[2025-02-08 12:40] LABS: ALT (SGPT) 33 U/L (0-35); AST (SGOT) 24 U/L (14-36); Albumin 3.2 g/dl (3.5-5.0); Alkaline Phosphatase 80 U/L (38-126); Blood Urea Nitrogen 22 mg/dl (7-17); Calcium 8.8 mg/dl (8.4-10.2); Carbon Dioxide 27 mmol/L (22-30); Chloride 100 mmol/L (98-107); Estimated Creatinine Clearance 45 ml/min; Glucose 104 mg/dl (70-99); Lipase 61 U/L (23-300); Magnesium 1.5 mg/dl (1.6-2.3); Potassium 3.2 mmol/L (3.5-5.1); Sodium 133 mmol/L (135-145); Total Protein 5.9 g/dl (6.3-8.2); eGFR > 60.00
[2025-02-08 12:52] LABS: Troponin I 0.025 ng/ml
[2025-02-08] MEDS: KCL 40 MEQ PO (13:14)
[2025-02-08] MEDS: LASIX 60 MG IV (13:17)
--- NOTE | 2025-02-08 13:58 | HPS.HSE ---
Addendum entered and electronically signed by Joanne Noriega MD 02/08/25 15:33:
This is an addendum to H&P written by Isa Bashir on 02/08/2025. �Patient seen and examined independently with PA.
79-year-old female past medical history of recent acute pericarditis, paroxysmal atrial fibrillation on Eliquis, SVT, CAD with LAD stent, chronic HFpEF, essential hypertension, severe triggers regurgitation, mild mitral stenosis, presenting with
worsening shortness of breath.
Patient was recently admitted on cardiology service from 01/25 to 01/30 for chest pain. �She was admitted for addition of amiodarone to sotalol. �She was also treated for acute pericarditis with colchicine and aspirin.
2 weeks prior to that she was admitted for type II [place] secondary to atrial fibrillation with RVR and had LAD stent placed.
Vital signs unremarkable.
Labs show potassium 3.2. �Magnesium 1.5. �Cardiac BNP 2300. �Troponin of 0.025. Hb 9.5 from 11.9 two weeks ago.
Chest x-ray shows interstitial pulmonary edema. �Suspected pleural fluid. �Cardiomegaly.
Patient with acute CHF exacerbation. �60 IV Lasix given. �Continue Lasix. �Cardiology consulted. �Continue colchicine for pericarditis. Worsening anemia likely from volume overload but check fecal occult.
Original Note:
Family Physician
-
Family Physician: Sadia Carlos, DO
Chief Complaint
-
Shortness of Breath
History of Present Illness
Patient is an 79 y/o female past medical history of CAD, Hypertension, Hyperlipidemia and recent admission from Jan 25- for pericarditis as well as initiation of sotalol for atrial fibrillation who presents with shortness of breath. Patient
reports increased dyspnea on exertion, as well as wheezing when trying to sleep at night. She denies weight gain but states her appetite has been poor. She denies black or bloody stools.
Medical History
Past Medical History
Past Medical History: Reports Other
Additional Past Medical History:
Coronary Artery Disease s/p LAD Stent Dec 2024
Pericarditis
Chronic HFpEF
Paroxysmal Atrial Fibrillation
Essential Hypertension
Hyperlipidemia
Past Surgical History: Reports Other
Additional Past Surgical History:
Left Carpal Tunnel
Left Knee Arthroscopy
Right Total Knee Replacement
Social History
Tobacco: Non-smoker
Alcohol: None
Drug: None
Family History
Family History: Not pertinent
Allergies / Home Medications
Allergies reflects when Allergies were last updated in [facility].
Home Medications with original date entered in [facility]
Allergy/Medication List:
Allergies
Allergy/AdvReac Type Severity Reaction Status Date / Time
sulfamethoxazole (From Allergy Intermediate Nausea / Verified 02/08/25 10:28
Bactrim) Vomiting
trimethoprim (From Bactrim) Allergy Intermediate Nausea / Verified 02/08/25 10:28
Vomiting
Home Medications
hydrochlorothiazide 12.5 mg capsule 12.5 mg PO DAILY Blood Pressure 01/08/25
losartan 25 mg tablet 25 mg PO DAILY Blood Pressure 01/08/25
apixaban 5 mg tablet (Eliquis) 5 mg PO BID #60 tabs 01/11/25
atorvastatin 80 mg tablet 80 mg PO QPM #30 tabs 01/11/25
clopidogrel 75 mg tablet 75 mg PO DAILY #30 tabs 01/11/25
colchicine 0.6 mg tablet 0.3 mg (1/2 x 0.6 mg) PO DAILY #90 tabs 01/30/25
pantoprazole 40 mg tablet,delayed release 40 mg PO DAILY #90 tabs 01/30/25
sotalol 80 mg tablet 80 mg PO DAILY #60 tabs 01/30/25
acetaminophen 325 mg tablet (Tylenol) 650 mg PO Q6HPRN PRN headaches 02/08/25
aspirin 81 mg tablet,delayed release 81 mg PO DIRECTED 02/08/25
polyethylene glycol 3350 17 gram oral powder packet 17 g PO DAILYPRN PRN constipation 02/08/25
Review of Systems
-
History Source: Patient
A 12 point ROS was completed and negative except as noted: Yes
Constitutional: Denies Fever or Chills
Respiratory: Reports Cough and Trouble Breathing
Cardiac: Denies Chest Pain or Palpitations
Abdomen/GI: Denies Abdominal Pain, Nausea, Vomiting, Diarrhea or Constipated
Physical Exam
Vital Signs
Vital Signs
Temp Pulse Resp BP Pulse Ox
98.2 F 64 20 131/57 94
02/08/25 11:38 02/08/25 13:30 02/08/25 13:30 02/08/25 13:21 02/08/25 13:30
Physical Exam
General: Comfortable, Conversant and Other (Appears short of breath just after returning from using the restroom)
HEENT: Anicteric and Moist mucous membranes
Respiratory: Clear and Non Labored Respirations
Cardiac: S1/S2, Regular Rhythm, Murmur and JVD
GI: Soft, Non Tender and Non Distended
Rectal: Deferred by Provider
Musculoskeletal: No Clubbing, No Cyanosis and Other (+1 edema bilateral lower extremities)
Skin: Warm and Dry
Neuro: Awake, Alert, Oriented and Nonfocal/grossly intact
Psych: Calm
Laboratory Results
-
02/08/25 12:11
02/08/25 12:11
Laboratory Results
Total Bilirubin 0.6 mg/dl (0.2-1.3) 02/08/25 12:11
AST 24 U/L (14-36) 02/08/25 12:11
ALT 33 U/L (0-35) 02/08/25 12:11
Alkaline Phosphatase 80 U/L (38-126) 02/08/25 12:11
Troponin I 0.025 ng/ml 02/08/25 12:11
Lipase 61 U/L (23-300) 02/08/25 12:11
Chest X-Ray:
Interstitial pulmonary edema. Suspected pleural fluid, limited by the single AP projection.
Cardiomegaly.
Data Reviewed
-
Diagnostic Radiology: Report Reviewed by me
Lab Data: Labs Reviewed by me
Impression/Plan
-
Acute on Chronic HFpEF
-Consult Cardiology
-Echo Jan 2025: Mild concentric LVH with EF 60-65%
-Continue Lasix 40mg IV Daily
-Monitor Is&Os and Daily Weights
New Normocytic Anemia
-Hgb dropped from 13 to 9.5
-Check iron studies, vit b12 and folate
-Heme-Test Stools
Hyponatremia, possibly hypervolumic in setting of heart failure and related to HCTZ
-Continue Lasix
-Hold HCTZ
Hypokalemia
-Replace potassium
-Monitor level closely while on diuretics
Recent Pericarditis
-Continue Aspirin taper as previously outlined by cardiology
-Continue colchicine
Coronary Artery Disease s/p LAD Stent Dec 2024
-Continue Plavix
Paroxysmal Atrial Fibrillation
-Continue Eliquis
-Continue sotalol
Essential Hypertension
-Stop HCTZ
-Continue losartan
Hyperlipidemia
-Continue atorvastatin
DVT proph: Eliquis
Code Status: Full Code
--- NOTE | 2025-02-08 14:04 | W.PN.CD ---
Addendum entered and electronically signed by Darrion Roy MD 02/08/25 15:04:
I saw and examined the patient.
The BLEACHING MACHINE OPERATOR's note was reviewed and I agree with the note.
Comment:
79-year-old female with hypertension, SVT, paroxysmal atrial fibrillation on Eliquis, HFpEF, severe tricuspid regurgitation, and CAD with multiple recent [facility] admissions who presents for shortness of breath. To summarize briefly, she
was hospitalized at [facility] in December for rapid A-fib and started on short-term amiodarone with plan for eventual ablation. During admission she was found to have an 80% LAD stenosis and underwent PCI. Amiodarone was subsequently
switched to sotalol due to GI upset. She was hospitalized again earlier this month for chest pain and was diagnosed with pericarditis, started on colchicine and high-dose aspirin. Since leaving the hospital on 01/30/2025 she has felt shortness of
breath. She assumed that it would improve and was from deconditioning but it has continued to worsen. At this point she is unable to walk a few feet without feeling short of breath. Chronic stable lower extremity edema. No chest pain.
Physical exam: RRR, soft systolic murmur, trace lower extremity edema, decreased breath sounds at the right lung base
I personally reviewed her chest x-ray which shows pulmonary edema and possible right-sided pleural effusion
Labs notable for proBNP 2330
Shortness of breath: Suspect this is due to pulmonary edema in the setting of HFpEF exacerbation. Agree with IV diuresis after potassium and magnesium repletion. 80 IV Lasix twice daily. Ask case management to stover SGLT2 inhibitor.
Pericarditis/pericardial effusion: Stable on most recent echo. Continue colchicine and aspirin taper. PPI while on DAPT and anticoagulation.
CAD: LAD stent in December. Continue triple therapy for now.
PAF: Continue sotalol and Eliquis
Original Note:
Today's Communication / Plan
-
IV diuresis with close monitoring of renal function and electrolytes.
Impression / Plan
-
HFpEF - acute on chronic.
- interstitial pulmonary edema on CXR with increased SOB/SIMONS over the last couple days.
- proBNP 2330.
- agree with IV diuresis, daily weights, I&Os, monitor renal profile.
- she states weights at home have been stable at 153 lbs, but does not have a good appetite.
- echo 02/08/25 stable/unchanged from 01/30/25 with EF 60-65%, mild cLVH, mild , mild MS, mod/severe TR with mod PHTN, small circumferential pericardial effusion without hemodynamic compromise.
Pericardial effusion - with pericarditis, new on echo 01/25/25.
- initiated on treatment with Colchicine 0.3mg daily.
- ASA taper since hospitalization 01/25/25 (left of taper: ASA 325mg TID today then BID for 3 days then daily for 2 days, so finished on 02/14/25).
- Protonix 40mg daily also added last hospitalization.
- echo today at the [facility] as outpatient, as above and unchanged from echo 01/30/25.
CAD - stable w/o angina.
- 80% mid LAD stenosis s/p MASON on 01/10/25.
- currently on triple therapy with ASA taper, Eliquis (Afib) and Plavix.
- ASA taper will be completed 02/14/25.
Afib - paroxysmal.
- stable in NSR on Sotalol 80mg daily (CrCl is < 60).
- on Eliquis, continue.
- previously on Amiodarone (01/08 - 01/11/25) but stopped (01/25/25) due to side effects (nausea, anorexia, fatigue).
- ultimate plan for outpatient EP consult with Dr. Hurtado for ablation after pericarditis/pericardial effusion resolves.
Dyslipidemia - stable on Lipitor, continue.
- LDL goal < 55.
Physical Exam
Vital Signs/Labs
Vital Signs
Temp Pulse Resp BP Pulse Ox
98.2 F 64 20 131/57 94
02/08/25 11:38 02/08/25 13:30 02/08/25 13:30 02/08/25 13:21 02/08/25 13:30
02/07/25 02/08/25 02/09/25
06:59 06:59 06:59
Actual Weight 153 lb
02/08/25 12:11
02/08/25 12:11
Magnesium 1.5 mg/dl (1.6-2.3) L 02/08/25 12:11
02/08/25
12:11
Zuf-N-Mpkkttnjkvz Pept 2330
LAB Results
02/08/25
12:11
Troponin I 0.025
Physical Exam
Constitutional: No acute distress
EENT: Anicteric and Moist mucous membranes
Cardiovascular: Rhythm & rate is regular and Pedal edema is absent
Respiratory: Respiratory effort normal and Other (diminished right base, very mild left basilar rales )
GI: Soft, Non tender and Normal bowel sounds
Neuro/Psych: AO x 3
Other: Skin (warm, dry)
Data Reviewed
-
Date of Service: February 08, 2025
Medical Decision Making: External Notes and Reviewed Test Results
EKG: Tracing Personally Visualized and interpreted (NSR 65 bpm)
Echo: Report Reviewed by me
X-Ray/CT/US/MRI/NUC/PET: Report Reviewed by me (cxr: Interstitial pulmonary edema, Suspected pleural fluid, cardiomegaly )
Labs: Labs Reviewed by me
Old Records: Reviewed
[2025-02-08 14:42] LABS: TSH 1.20 uIU/ml (0.47-4.68)
[2025-02-08 15:17] LABS: Iron < 20 ug/dl (37-170)
[2025-02-08 15:25] LABS: Total Iron Binding Capacity 231 ug/dl (265-497)
[2025-02-08 15:51] LABS: Ferritin 433.0 ng/ml (11.1-264.0)
[2025-02-08 16:22] LABS: Folate 7.3 ng/ml (2.76-20); Vitamin B12 462 pg/ml (239-931)
[2025-02-08] MEDS: LIPITOR 80 MG PO (17:24)
--- NOTE | 2025-02-08 17:58 | PTCARENOTE ---
Received pt from ED into room . Pt ambulatory to bed with stand by assistance. Pt AAOx3. VSS. 94% RA. Pt denies pain. Admission completed. Daughter at bedside. Oriented to room, pt educated on use of call arroyo, states understanding. Pt has no
further complaints at this time.
[2025-02-08] MEDS: ELIQUIS 5 MG PO (20:02)
[2025-02-08] MEDS: ASPIR LOW (ENTERIC COATED) 81 MG PO ×2 (20:02→20:28)
[2025-02-09 03:32] VITALS: BP 124/55
[2025-02-09 06:00] VITALS: BMI 27.0
[2025-02-09 07:28] LABS: Hematocrit 27.5 % (37.0-47.0); Hemoglobin 9.5 g/dL (12.0-16.0); Mean Corp Hgb Conc. 34.5 g/dL (33.0-37.0); Mean Corpuscular Volume 84.4 fL (81.0-99.0); Platelet Count 246 10^3/uL (130-400); Red Cell Dist. Width 13.2 % (11.5-14.5)
[2025-02-09 07:45] VITALS: BP 126/54
[2025-02-09 07:56] LABS: Blood Urea Nitrogen 23 mg/dl (7-17); Calcium 8.3 mg/dl (8.4-10.2); Carbon Dioxide 30 mmol/L (22-30); Chloride 100 mmol/L (98-107); Estimated Creatinine Clearance 51 ml/min; Glucose 97 mg/dl (70-99); Magnesium 1.6 mg/dl (1.6-2.3); Potassium 3.4 mmol/L (3.5-5.1); Sodium 136 mmol/L (135-145); eGFR > 60.00
--- NOTE | 2025-02-09 08:30 | VNURNOTE ---
Chart reviewed. Patient is current with [facility]. Will continue to follow hospital course and DC plans.
[2025-02-09] MEDS: BETAPACE 80 MG PO (08:48)
[2025-02-09] MEDS: COLCHICINE 0.3 MG PO (08:49)
[2025-02-09] MEDS: PLAVIX 75 MG PO (08:50)
[2025-02-09] MEDS: ELIQUIS 5 MG PO ×2 (08:50→20:06)
[2025-02-09] MEDS: LASIX 40 MG IV ×2 (08:50→17:02)
[2025-02-09] MEDS: COZAAR 25 MG PO (08:50)
[2025-02-09] MEDS: PROTONIX 40 MG PO (08:50)
[2025-02-09] MEDS: ASPIR LOW (ENTERIC COATED) 81 MG PO (08:50)
[2025-02-09] MEDS: MIRALAX 17 GRAMS PO (08:57)
--- NOTE | 2025-02-09 09:08 | W.PN.HOSP.TC ---
Today's Communication/Plan
-
see bold
Assessment / Plan
Assessment / Plan
HPI: 79-year-old female past medical history of recent acute pericarditis, paroxysmal atrial fibrillation on Eliquis, SVT, CAD with LAD stent, chronic HFpEF, essential hypertension, severe triggers regurgitation, mild mitral stenosis, presenting
with worsening shortness of breath. Patient was recently admitted on cardiology service from 01/25 to 01/30 for chest pain, and had amiodarone changed to sotalol. She was also treated for acute pericarditis with colchicine and aspirin. 2 weeks prior
to that she was admitted for type II [place] secondary to atrial fibrillation with RVR and had LAD stent placed. Patient with acute CHF exacerbation. Continue colchicine for pericarditis. Worsening anemia likely from volume overload.
Acute on Chronic HFpEF
-Echo Jan 2025: Mild concentric LVH with EF 60-65%
-Appreciate cardiology input, Lasix increased to 40 mg IV twice daily
-Trend creatinine, trend daily weights
New Normocytic Anemia
-Hgb dropped from 13 to 9.5
-Iron low at less than 28, ferritin elevated at 433�suspect due to being an acute phase reactant from her pericarditis
-Heme test stools, trend Hgb
Hyponatremia, possibly hypervolumic in setting of heart failure and related to HCTZ
-Continue Lasix
-Hold HCTZ
Hypokalemia
Hypomagnesemia
-Replace prn
Recent Pericarditis
-Continue Aspirin taper taper since hospitalization 01/25/25 (left of taper: ASA 325mg TID today then BID for 3 days then daily for 2 days, so finished on 02/14/25)
-Continue colchicine
Coronary Artery Disease s/p LAD Stent Dec 2024
-Continue Plavix
Paroxysmal Atrial Fibrillation
-Continue Eliquis
-Continue sotalol
Essential Hypertension
-Stop HCTZ
-Continue losartan
Hyperlipidemia
-Continue atorvastatin
DVT proph: Eliquis
Code Status: Full Code
Updated daughter on phone 02/09
Total time spent to see the patient on the floor, examine the patient, review data and lab results, discuss treatment plan with patient, nursing staff around 50 minutes.
Physical Exam
General: No acute distress
HEENT: Normocephalic, Atraumatic, EOMI, MMM
Respiratory: Severely diminished breath sounds at the right lung base
Cardiac: Normal S1/S2, Regular Rate and Rhythm
GI: Soft, Nontender, Nondistended, Normal Bowel Sounds
Extremities: No Clubbing, Cyanosis, or Edema
Neuro: Nonfocal/Grossly Intact
Anticipated Discharge: > 48 hours
Subjective/Interval History
-
Date of Service: February 09, 2025
Patient reports that her shortness of breath is improved. She does have neck pain. Denies palpitations. No fever, no vomiting.
Objective Data
-
Labs:
Laboratory Results
02/09/25
06:45
WBC 8.2
Hgb 9.5 L
Hct 27.5 L
Plt Count 246
Sodium 136
Potassium 3.4 L
Chloride 100
Carbon Dioxide 30
BUN 23 H
Creatinine 0.8
Glucose 97
Calcium 8.3 L
Vital Signs:
Vital Signs
Temp Pulse Resp BP Pulse Ox
98.3 F 67 16 126/54 93
02/09/25 07:45 02/09/25 08:48 02/09/25 07:45 02/09/25 08:48 02/09/25 07:45
I&O
02/08/25 02/09/25 02/10/25
06:59 06:59 06:59
Intake Total 360 / 360
Balance 360 / 360
--- NOTE | 2025-02-09 09:14 | W.PN.CD ---
Today's Communication / Plan
-
increase lasix to 40mg IV bid
replete K
Impression / Plan
-
HFpEF - acute, severe, requiring hospitalization for IV diuresis and close monitoring of labs/tele
- echo 02/08/25 with EF 60-65%, mild cLVH, mild , mild MS, mod/severe TR with mod PHTN, small circumferential pericardial effusion without hemodynamic compromise.
- interstitial pulmonary edema on CXR with increased SOB/SIMONS over the last couple days.
- proBNP 2330.
- she feels better compared to yesterday
-increase IV lasix to 40mg bid
-replete K
Pericardial effusion - with pericarditis, new on echo 01/25/25.
- initiated on treatment with Colchicine 0.3mg daily.
- ASA taper since hospitalization 01/25/25 (left of taper: ASA 325mg TID today then BID for 3 days then daily for 2 days, so finished on 02/14/25).
- Protonix 40mg daily also added last hospitalization.
CAD - stable w/o angina.
- 80% mid LAD stenosis s/p MASON on 01/10/25.
- currently on triple therapy with ASA taper, Eliquis (Afib) and Plavix.
- ASA taper will be completed 02/14/25.
Afib - paroxysmal.
- stable in NSR on Sotalol 80mg daily (CrCl is < 60).
- on Eliquis, continue.
- previously on Amiodarone (01/08 - 01/11/25) but stopped (01/25/25) due to side effects (nausea, anorexia, fatigue).
- ultimate plan for outpatient EP consult with Dr. Hurtado for ablation after pericarditis/pericardial effusion resolves.
Dyslipidemia - stable on Lipitor, continue.
- LDL goal < 55.
Physical Exam
Vital Signs/Labs
Vital Signs
Temp Pulse Resp BP Pulse Ox
98.3 F 67 16 126/54 93
02/09/25 07:45 02/09/25 08:48 02/09/25 07:45 02/09/25 08:48 02/09/25 07:45
02/08/25 02/09/25 02/10/25
06:59 06:59 06:59
Actual Weight 69.031 kg
02/09/25 06:45
02/09/25 06:45
Magnesium 1.6 mg/dl (1.6-2.3) 02/09/25 06:45
TSH 1.20 uIU/ml (0.47-4.68) 02/08/25 12:11
02/08/25
12:11
Nck-Z-Nbjeaoigfes Pept 2330
LAB Results
02/08/25
12:11
Troponin I 0.025
Physical Exam
Constitutional: No acute distress and Comfortable
EENT: Moist mucous membranes
Cardiovascular: Rhythm & rate is regular, Pedal edema is absent, JVD present and Systolic murmur present
Respiratory: Respiratory effort normal and Lungs clear to auscul.
Neuro/Psych: AO x 3
Data Reviewed
-
Date of Service: February 09, 2025
EKG: Other (Tele: SR 60s)
Labs: Labs Reviewed by me
[2025-02-09] MEDS: KCL 40 MEQ PO (09:31)
[2025-02-09 11:30] VITALS: BP 100/43
[2025-02-09 15:30] VITALS: BP 126/52
--- NOTE | 2025-02-09 16:06 | CM ---
Patient seen bedside, initial assessment completed. Patient is an 79 y/o female past medical history of CAD, Hypertension, Hyperlipidemia and recent admission from Jan 25- for pericarditis as well as initiation of sotalol for atrial fibrillation
who presents with shortness of breath.
Recent IVU admission (01/25-01/30)
Patient resides w/ son in a [facility], no steps to enter. Patient is independent w/ ambulation, no device required. Independent w/ ADLs and personal care. No DME reported. No SNF hx. Current w/ [facility].
Address, points of contact and insurance verified
PCP: Sadia Carlos
Pharmacy: [facility]
Patient shared that her last admission, IVU CM was assisting her w/ Eliquis coverage to see if she can get assistance w/ the cost. Patient stated she was suppose to receive a card in the mail. Per chart review from last admission, Patient Assistance
Application for [employer] [place] [employer] was faxed to [employer] to see if she would qualify. [employer] Application with proof of age e-mailed to [employer] for transportation assistance.
Plan: Home, [place] w/ [facility]
[2025-02-09] MEDS: ASPIRIN 325 MG PO (17:02)
[2025-02-09] MEDS: LIPITOR 80 MG PO (17:03)
[2025-02-09 19:48] VITALS: BP 101/52
[2025-02-09] MEDS: LOW STRENGTH ASPIRIN PO (20:11)
[2025-02-09 23:15] VITALS: BP 102/47
[2025-02-10 03:50] VITALS: BP 126/56
[2025-02-10 06:00] VITALS: BMI 26.8
--- NOTE | 2025-02-10 06:06 | PTCARENOTE ---
Patient refused aspirin overnight and stated that MD had switched the order multiple times and that the pt. was only supposed to be taking med BID......not TID....81mg PM aspirin held for pt. request and pt. plans to f/u with MD in AM regarding
correct aspirin taper dosing.
[2025-02-10 07:44] VITALS: BP 111/62
--- NOTE | 2025-02-10 08:47 | W.PN.CD ---
Today's Communication / Plan
-
continue IV lasix 40mg bid
labs pending
assess to transition to lasix 40mg daily tomorrow
Impression / Plan
-
HFpEF - acute, severe, requiring hospitalization for IV diuresis and close monitoring of labs/tele
- echo 02/08/25 with EF 60-65%, mild cLVH, mild , mild MS, mod/severe TR with mod PHTN, small circumferential pericardial effusion without hemodynamic compromise.
- interstitial pulmonary edema on CXR with increased SOB/SIMONS over the last couple days.
- proBNP 2330.
- she feels better compared to yesterday
-continue IV lasix 40mg bid
-labs pending
-assess to transition to lasix 40mg daily tomorrow
Pericardial effusion - with pericarditis, new on echo 01/25/25.
- initiated on treatment with Colchicine 0.3mg daily. plan for 3 months
- ASA taper since hospitalization 01/25/25 (left of taper: ASA 81mg BID for through 02/12, then daily for 2 days, so finished on 02/14/25).
-dose reduced due to GI side effects
- Protonix 40mg daily also added last hospitalization.
CAD - stable w/o angina.
- 80% mid LAD stenosis s/p MASON on 01/10/25.
- currently on triple therapy with ASA taper, Eliquis (Afib) and Plavix.
- ASA taper will be completed 02/14/25.
Afib - paroxysmal.
- stable in NSR on Sotalol 80mg daily (CrCl is < 60).
- on Eliquis, continue.
- previously on Amiodarone (01/08 - 01/11/25) but stopped (01/25/25) due to side effects (nausea, anorexia, fatigue).
- ultimate plan for outpatient EP consult with Dr. Hurtado for ablation after pericarditis/pericardial effusion resolves.
Dyslipidemia - stable on Lipitor, continue.
- LDL goal < 55.
Dispo
-follow up in chart
Physical Exam
Vital Signs/Labs
Vital Signs
Temp Pulse Resp BP Pulse Ox
98.2 F 63 18 126/56 96
02/10/25 03:50 02/10/25 03:50 02/10/25 03:50 02/10/25 03:50 02/10/25 03:50
02/09/25 02/10/25 02/11/25
06:59 06:59 06:59
Actual Weight 69.031 kg 68.606 kg
02/09/25 06:45
Magnesium 1.6 mg/dl (1.6-2.3) 02/09/25 06:45
TSH 1.20 uIU/ml (0.47-4.68) 02/08/25 12:11
02/08/25
12:11
Orp-H-Ztrnwrgpucf Pept 2330
LAB Results
02/08/25
12:11
Troponin I 0.025
Physical Exam
Constitutional: No acute distress and Comfortable
EENT: Moist mucous membranes
Cardiovascular: Rhythm & rate is regular, Pedal edema present, JVD present and Systolic murmur present
Respiratory: Respiratory effort normal and Lungs clear to auscul.
Neuro/Psych: AO x 3
Data Reviewed
-
Date of Service: February 10, 2025
EKG: Other (Tele: SR 60s)
[2025-02-10] MEDS: BETAPACE 80 MG PO (08:48)
[2025-02-10] MEDS: LOW STRENGTH ASPIRIN 81 MG PO ×2 (08:48→19:53)
[2025-02-10] MEDS: PROTONIX 40 MG PO (08:48)
[2025-02-10] MEDS: COLCHICINE 0.3 MG PO (08:49)
[2025-02-10] MEDS: ELIQUIS 5 MG PO ×2 (08:49→19:53)
[2025-02-10] MEDS: COZAAR PO (08:49)
[2025-02-10] MEDS: PLAVIX 75 MG PO (08:50)
[2025-02-10 08:53] LABS: Blood Urea Nitrogen 33 mg/dl (7-17); Calcium 8.6 mg/dl (8.4-10.2); Carbon Dioxide 29 mmol/L (22-30); Chloride 101 mmol/L (98-107); Estimated Creatinine Clearance 41 ml/min; Glucose 100 mg/dl (70-99); Magnesium 1.6 mg/dl (1.6-2.3); Potassium 4.3 mmol/L (3.5-5.1); Sodium 137 mmol/L (135-145); eGFR 56.60
[2025-02-10] MEDS: LASIX 40 MG IV ×2 (09:08→16:02)
--- NOTE | 2025-02-10 09:10 | W.PN.HOSP.TC ---
Today's Communication/Plan
-
see bold
Assessment / Plan
Assessment / Plan
HPI: 79-year-old female past medical history of recent acute pericarditis, paroxysmal atrial fibrillation on Eliquis, SVT, CAD with LAD stent, chronic HFpEF, essential hypertension, severe triggers regurgitation, mild mitral stenosis, presenting
with worsening shortness of breath. Patient was recently admitted on cardiology service from 01/25 to 01/30 for chest pain, and had amiodarone changed to sotalol. She was also treated for acute pericarditis with colchicine and aspirin. 2 weeks prior
to that she was admitted for type II [place] secondary to atrial fibrillation with RVR and had LAD stent placed. Patient with acute CHF exacerbation. Continue colchicine for pericarditis. Worsening anemia likely from volume overload.
Acute on Chronic HFpEF
-Echo Jan 2025: Mild concentric LVH with EF 60-65%
-Appreciate cardiology input, Lasix increased to 40 mg IV twice daily
-Trend creatinine, trend daily weights
New Normocytic Anemia
-Hgb dropped from 13 to 9.5
-Iron low at less than 28, ferritin elevated at 433�suspect due to being an acute phase reactant from her pericarditis
-Heme test stools, trend Hgb
Hyponatremia, possibly hypervolumic in setting of heart failure and related to HCTZ
-Continue Lasix
-Hold HCTZ
Hypokalemia
Hypomagnesemia
-Replace prn
Recent Pericarditis
-Continue Aspirin taper taper since hospitalization 01/25/25
-Continue colchicine
Coronary Artery Disease s/p LAD Stent Dec 2024
-Continue Plavix
Paroxysmal Atrial Fibrillation
-Continue Eliquis
-Continue sotalol
Essential Hypertension
-Stop HCTZ
-Continue losartan
Hyperlipidemia
-Continue atorvastatin
DVT proph: Eliquis
Code Status: Full Code
Updated daughter on phone 02/09
Total time spent to see the patient on the floor, examine the patient, review data and lab results, discuss treatment plan with patient, nursing staff around 40 minutes.
Physical Exam
General: No acute distress
HEENT: Normocephalic, Atraumatic, EOMI, MMM
Respiratory: Severely diminished breath sounds at the right lung base
Cardiac: Normal S1/S2, Regular Rate and Rhythm
GI: Soft, Nontender, Nondistended, Normal Bowel Sounds
Extremities: No Clubbing, Cyanosis
Mild lower extremity edema
Neuro: Nonfocal/Grossly Intact
Anticipated Discharge: 24 - 48 hours
Subjective/Interval History
-
Date of Service: February 10, 2025
Patient continues to have dyspnea with activity, overall improved. Reports pleuritic chest pain. No fever, no vomiting.
Objective Data
-
Labs:
Laboratory Results
02/10/25
06:56
Sodium 137
Potassium 4.3 D
Chloride 101
Carbon Dioxide 29
BUN 33 H
Creatinine 1.0
Glucose 100 H
Calcium 8.6
Vital Signs:
Vital Signs
Temp Pulse Resp BP Pulse Ox
98.2 F 71 18 111/62 96
02/10/25 03:50 02/10/25 08:49 02/10/25 03:50 02/10/25 08:49 02/10/25 03:50
I&O
02/09/25 02/10/25 02/11/25
06:59 06:59 06:59
Intake Total 360 / 360 840 / 840
Balance 360 / 360 840 / 840
[2025-02-10 11:03] VITALS: BP 116/44
[2025-02-10 14:48] VITALS: BP 106/52
[2025-02-10] MEDS: LIPITOR 80 MG PO (17:14)
[2025-02-10 19:55] VITALS: BP 102/48
[2025-02-10 23:46] VITALS: BP 110/50
[2025-02-11 03:25] VITALS: BP 119/61
[2025-02-11 06:00] VITALS: BMI 26.6
[2025-02-11 07:21] VITALS: BP 143/61
--- NOTE | 2025-02-11 08:59 | W.PN.HOSP.TC ---
Today's Communication/Plan
-
Cleared by cardiology for discharge today
Assessment / Plan
Assessment / Plan
HPI: 79-year-old female past medical history of recent acute pericarditis, paroxysmal atrial fibrillation on Eliquis, SVT, CAD with LAD stent, chronic HFpEF, essential hypertension, severe triggers regurgitation, mild mitral stenosis, presenting
with worsening shortness of breath. Patient was recently admitted on cardiology service from 01/25 to 01/30 for chest pain, and had amiodarone changed to sotalol. She was also treated for acute pericarditis with colchicine and aspirin. 2 weeks prior
to that she was admitted for type II TX secondary to atrial fibrillation with RVR and had LAD stent placed. Patient with acute CHF exacerbation. Continue colchicine for pericarditis. Worsening anemia likely from volume overload.
Acute on Chronic HFpEF
-Echo Jan 2025: Mild concentric LVH with EF 60-65%
-Appreciate cardiology input, patient diuresing well on Lasix 40 mg IV twice daily
-Cleared by cardiology for discharge on Lasix 40 mg p.o. daily, this is a new medication for her
-Follow-up with cardiology in the office as scheduled, and her PCP in 1 week
New Normocytic Anemia
-Hgb dropped from 13 to 9.5
-Iron low at less than 28, ferritin elevated at 433�suspect due to being an acute phase reactant from her pericarditis
-Rec outpt c-scope
Hyponatremia, possibly hypervolumic in setting of heart failure and related to HCTZ
-Cardiology recommends permanent discontinuation of hydrochlorothiazide, she will be discharged on Lasix
Hypokalemia
Hypomagnesemia
-Replace prn
Recent Pericarditis
-Continue Aspirin taper taper since hospitalization 01/25/25
-Continue colchicine
Coronary Artery Disease s/p LAD Stent Dec 2024
-Continue Plavix
Paroxysmal Atrial Fibrillation
-Continue Eliquis
-Continue sotalol
Essential Hypertension
-Permanently discontinue hydrochlorothiazide as per cardiology
-Continue losartan
Hyperlipidemia
-Continue atorvastatin
DVT proph: Eliquis
Code Status: Full Code
Updated daughter on phone 02/11
Physical Exam
General: No acute distress
HEENT: Normocephalic, Atraumatic, EOMI, MMM
Respiratory: Severely diminished breath sounds at the right lung base
Cardiac: Normal S1/S2, Regular Rate and Rhythm
GI: Soft, Nontender, Nondistended, Normal Bowel Sounds
Extremities: No Clubbing, Cyanosis
Mild lower extremity edema
Neuro: Nonfocal/Grossly Intact
Anticipated Discharge: Today
Subjective/Interval History
-
Date of Service: February 11, 2025
Patient reports her breathing has improved dramatically. Denies chest pain. No fever, no vomiting.
Objective Data
-
Labs:
Laboratory Results
02/11/25
08:47
WBC Pending
Hgb Pending
Hct Pending
Plt Count Pending
Sodium Pending
Potassium Pending
Chloride Pending
Carbon Dioxide Pending
BUN Pending
Creatinine Pending
Glucose Pending
Calcium Pending
Vital Signs:
Vital Signs
Temp Pulse Resp BP Pulse Ox
97.6 F 64 18 143/61 91
02/11/25 07:21 02/11/25 07:21 02/11/25 07:21 02/11/25 07:21 02/11/25 07:21
I&O
02/10/25 02/11/25 02/12/25
06:59 06:59 06:59
Intake Total 840 / 840 900 / 900
Output Total 750 / 750
Balance 840 / 840 150 / 150
[2025-02-11 09:10] LABS: Hematocrit 28.2 % (37.0-47.0); Hemoglobin 9.5 g/dL (12.0-16.0); Mean Corp Hgb Conc. 33.7 g/dL (33.0-37.0); Mean Corpuscular Volume 83.2 fL (81.0-99.0); Platelet Count 301 10^3/uL (130-400); Red Cell Dist. Width 13.3 % (11.5-14.5)
[2025-02-11] MEDS: PROTONIX 40 MG PO (09:59)
[2025-02-11] MEDS: BETAPACE 80 MG PO (09:59)
[2025-02-11] MEDS: COZAAR 25 MG PO (10:00)
[2025-02-11] MEDS: PLAVIX 75 MG PO (10:00)
[2025-02-11] MEDS: COLCHICINE 0.3 MG PO (10:00)
[2025-02-11] MEDS: ELIQUIS 5 MG PO (10:00)
[2025-02-11] MEDS: LOW STRENGTH ASPIRIN 81 MG PO (10:01)
[2025-02-11] MEDS: MIRALAX 17 GRAMS PO (10:05)
[2025-02-11 10:08] LABS: Blood Urea Nitrogen 35 mg/dl (7-17); Calcium 8.9 mg/dl (8.4-10.2); Estimated Creatinine Clearance 41 ml/min; Glucose 106 mg/dl (70-99); Magnesium 1.6 mg/dl (1.6-2.3); Potassium 3.7 mmol/L (3.5-5.1); eGFR 56.60
[2025-02-11] MEDS: LASIX 40 MG IV (10:09)
[2025-02-11 10:20] LABS: Carbon Dioxide 28 mmol/L (22-30); Chloride 101 mmol/L (98-107); Sodium 136 mmol/L (135-145)
[2025-02-11 11:24] VITALS: BP 118/51
--- NOTE | 2025-02-11 11:30 | W.PN.CD ---
Addendum entered and electronically signed by Darrion Roy MD 02/11/25 13:04:
I saw and evaluated the patient, and I provided the substantive portion of the medical decision making.
I reviewed and agree with the note by MANN and it accurately reflects our care.
I personally performed the medical decision making of the this encounter and my assessment and plan is below:
79-year-old female with hypertension, SVT, paroxysmal atrial fibrillation on Eliquis, HFpEF, severe tricuspid regurgitation, and CAD with multiple recent [facility] admissions who presents for shortness of breath, found to have HFpEF. Now
improved after IV diuresis.
Physical exam: RRR, no murmurs, no lower extremity edema, clear lungs
HFpEF: New diagnosis this admission. Will plan to discharge on Lasix 40 mg p.o. daily which is a new med for her. Stop HCTZ. Consider SGLT2 inhibitor as an outpatient
Remainder as per MANN note.
Addendum entered and electronically signed by MANN Bhardwaj 02/11/25 12:39:
Follow-up in our office arranged, and lab slip for BMP in 1 week sent electronically
Original Note:
Today's Communication / Plan
-
Continue IV diuresis today, then transition to PO tomorrow (lasix 40 mg PO daily)
Impression / Plan
-
HFpEF - acute: improving
-echo 02/08/25 with EF 60-65%, mild cLVH, mild , mild MS, mod/severe TR with mod PHTN, small circumferential pericardial effusion without hemodynamic compromise.
-interstitial pulmonary edema on CXR with increased SOB/SIMONS over the last couple days.
-will transition to lasix 40 mg daily starting tomorrow
-patient walking in hallways today and reports she feels '80% better'
Pericardial effusion - with pericarditis, new on echo 01/25/25.
- initiated on treatment with Colchicine 0.3mg daily. plan for 3 months
- ASA taper since hospitalization 01/25/25 (left of taper: ASA 81mg BID for through 02/12, then daily for 2 days, so finished on 02/14/25).
-dose reduced due to GI side effects
- Protonix 40mg daily also added last hospitalization.
CAD - stable w/o angina.
- 80% mid LAD stenosis s/p MASON on 01/10/25.
- currently on triple therapy with ASA taper, Eliquis (Afib), and Plavix.
- ASA taper will be completed 02/14/25.
Afib - paroxysmal.
- stable in NSR on Sotalol 80mg daily (CrCl is < 60).
- on Eliquis, continue.
- previously on Amiodarone (01/08 - 01/11/25) but stopped (01/25/25) due to side effects (nausea, anorexia, fatigue).
- ultimate plan for outpatient EP consult with Dr. Hurtado for ablation after pericarditis/pericardial effusion resolves.
Dyslipidemia - stable on Lipitor, continue.
- LDL goal < 55.
Dispo
-follow up in chart
Physical Exam
Vital Signs/Labs
Vital Signs
Temp Pulse Resp BP Pulse Ox
97.4 F 59 18 118/51 97
02/11/25 11:24 02/11/25 11:24 02/11/25 11:24 02/11/25 11:24 02/11/25 11:24
02/10/25 02/11/25 02/12/25
06:59 06:59 06:59
Actual Weight 68.606 kg 68.209 kg
02/11/25 08:47
02/11/25 08:47
Magnesium 1.6 mg/dl (1.6-2.3) 02/11/25 08:47
TSH 1.20 uIU/ml (0.47-4.68) 02/08/25 12:11
02/08/25
12:11
[id number] Pept 2330
LAB Results
02/08/25
12:11
Troponin I 0.025
Physical Exam
Constitutional: No acute distress
EENT: Anicteric
Cardiovascular: Rhythm & rate is regular
Respiratory: Respiratory effort normal and Lungs clear to auscul.
Neuro/Psych: AO x 3
Data Reviewed
-
Date of Service: February 11, 2025
EKG: Other (Tele SR)
Labs: Labs Reviewed by me
--- NOTE | 2025-02-11 14:15 | W.DCSUMMARY ---
Addendum entered and electronically signed by Ramírez Butcher MD 02/11/25 18:16:
For patient's new iron deficiency anemia, she has been recommended to follow-up with GI for outpatient colonoscopy if she is not up to date.
Original Note:
Discharge Summary
Discharge Data
Date of Admission: 02/08/25
Date of Discharge: 02/11/25
-
Pending Results: No
Hospital Course
Discharge diagnosis:
Acute heart failure with a preserved ejection fraction
Recent pericarditis
New iron deficiency anemia
Hypokalemia
Hypomagnesemia
Coronary artery disease status post stent placement December 2024
Paroxysmal atrial fibrillation on Eliquis
Essential hypertension
Hyperlipidemia
Consults: Cardiology
02/08/25 Echo:
1. Normal biventricular size and systolic function with an ejection fraction of 60 to 65%. Mild concentric left ventricular hypertrophy.
2. Mild aortic stenosis with trace aortic regurgitation.
3. Mild mitral stenosis with mild to moderate mitral regurgitation.
4. Moderate to severe tricuspid regurgitation with moderate pulmonary hypertension.
5. Small circumferential pericardial effusion without evidence of hemodynamic compromise.
6. When compared to the images directly from 01/30/2025, the effusion appears similar. Pulmonary pressures are higher on today's study.
Hospital course:
79-year-old female with a past medical history of recent pericarditis, atrial fibrillation on Eliquis, hypertension, and CAD status post stent placement December 2024 was admitted for new onset acute heart failure with a preserved ejection fraction.
Patient was seen in conjunction with cardiology. She was diuresed with Lasix 40 mg IV twice daily. Echocardiogram shows moderate to severe tricuspid regurgitation. Cardiology suspects that her valvular disease is the cause of her heart failure.
After several days, her breathing improved dramatically. She is medically stable and cleared by cardiology for discharge on Lasix 40 mg p.o. daily. She is to discontinue her hydrochlorothiazide. She needs to follow-up with her PCP in 1 week, and
cardiology in the office as scheduled.
Disposition: Home with home care
Discharge planning: Required 36 minutes
Discharge Plan
-
Patient Disposition: Home with Home Care
Discharge Diagnosis/Procedures: Acute heart failure with a preserved ejection fraction, subacute pericarditis
Condition: Good
Diet: 2 Gram Sodium
Activity: As tolerated
Driving Restrictions: As prior to admission
Blood Work: BMP 1 week- slip sent to [facility] electronically with results to Dr. Donis
Activity Restrictions/Additional Instructions:
Please obtain your blood work as directed by cardiology.
Recommend you follow-up with GI, and get a colonoscopy if you have not had one recently.
Your blood count is low, which can be caused by microscopic blood loss in the stool.
Follow-up with cardiology in the office as scheduled, and your PCP in 1 week.
Referrals:
Juanita Judd CRNP [Specified Professional Personl, Cardiology] - 02/28/25 1:40 pm
Ann Butcher MD [Active, Gastroenterology] - in three to four weeks
Sadia Carlos DO [Family Provider] - in one week
Prescriptions:
New
furosemide 40 mg Tablet
40 mg PO DAILY Qty: 30 0RF
Continued
losartan 25 mg Tablet
25 mg PO DAILY
atorvastatin 80 mg Tablet
80 mg PO QPM Qty: 30 0RF
Eliquis 5 mg Tablet
5 mg PO BID Qty: 60 0RF
clopidogrel 75 mg Tablet
75 mg PO DAILY Qty: 30 0RF
sotalol 80 mg Tablet
80 mg PO DAILY Qty: 60 3RF
pantoprazole 40 mg Tablet,Delayed Release (Dr/Ec)
40 mg PO DAILY Qty: 90 0RF
colchicine 0.6 mg Tablet
0.3 mg PO DAILY Qty: 90 0RF
polyethylene glycol 3350 17 gram powder in packet
17 g PO DAILYPRN PRN (Reason: constipation)
acetaminophen [Tylenol] 325 mg Tablet
650 mg PO Q6HPRN PRN (Reason: headaches)
aspirin 81 mg Tablet,Delayed Release (Dr/Ec)
81 mg PO DIRECTED
Rx Instructions:
ASPIRIN TAPER:
- 01/31/2025 - 02/02/2025: 324mg three times a day
- 02/03/2025 - 02/05/2025: 162mg three times a day
- 02/06/2025 - 02/08/2025: 81mg three times a day
- 02/09/2025 - 02/11/2025: 81mg twice daily
- 02/12/2025 - 02/14/2025: 81mg daily
- 02/15/2025: NO MORE ASPIRIN
Discontinued
hydrochlorothiazide 12.5 mg Capsule
12.5 mg PO DAILY
Discharge Orders:
Discharge Patient (As Directed); Ordered 02/11/25
Ordered By: Ramírez Butcher
Discharge Date and Time
Discharge Date/Time: 02/11/25 15:30
Print Language: ITALIAN
[2025-02-11 15:00] VITALS: BP 112/57
--- NOTE | 2025-02-11 15:04 | CM ---
Reviewed the chart notes and spoke with the patient and daughter at the bedside. IMM reviewed. Patient's daughter to transport.
Plan: Discharge to home with [facility] services.
== END 2025-02-11 15:30 | disposition home health service (06) | DRG 291 ==
LOC: 4 EAST ACU 15:28
PROVIDERS: Physician Assistant Medical; ADMITTING PHYSICIAN Hospitalist; ATTENDING PHYSICIAN Family Medicine; CONSULT PHYSICIAN Student in an Organized Health Care Education/Training Program; EMERGENCY PHYSICIAN Emergency Medicine; FAMILY PHYSICIAN Family Medicine
DX: I11.0 Hypertensive heart disease with heart failure (principal); I50.33 Acute on chronic diastolic (congestive) heart failure; E87.1 Hypo-osmolality and hyponatremia; I31.39 Other pericardial effusion (noninflammatory); I31.9 Disease of pericardium, unspecified; D50.9 Iron deficiency anemia, unspecified; E78.5 Hyperlipidemia, unspecified; E83.42 Hypomagnesemia; E87.6 Hypokalemia; I05.2 Rheumatic mitral stenosis with insufficiency; I07.1 Rheumatic tricuspid insufficiency; I27.20 Pulmonary hypertension, unspecified; I25.10 Atherosclerotic heart disease of native coronary artery without angina pectoris; I48.0 Paroxysmal atrial fibrillation; K59.00 Constipation, unspecified; R09.02 Hypoxemia; Z79.01 Long term (current) use of anticoagulants; Z79.02 Long term (current) use of antithrombotics/antiplatelets; Z79.899 Other long term (current) drug therapy
CPT/HCPCS: 71045; 80048; 80053; 82607; 82728; 82746; 83540; 83550; 83690; 83735; 83880; 84443; 84484; 85025; 85027; 93005; 93308; 96374; 97161; 99291